=== PATIENT | female | born 1960 | race Caucasian/White ===

== ENCOUNTER 2023-05-01 11:01 | Emergency (ER) | payer OTHER, SELFPAY ==
[2023-05-01 11:02] VITALS: BP 158/89
--- NOTE | 2023-05-01 12:00 | ED.MUSCINJ ---
HPI-Injury
<GAIL Ordaz - Last Filed: 05/01/23 15:08>
General
Chief Complaint: Musculo-Skeletal Complaint
Source: patient
Exam Limitations: none
Time Seen by Provider: 05/01/23 11:42
Travel History
Have you had any contact with someone who has COVID-19?: No
Do you have any symptoms of coronavirus? Fever > 100 degrees, chills, cough, shortness of breath, sore throat, loss of taste or smell, muscle aches, or headache?: No
History of Present Illness-Injury
Is this injury a work related problem?: No
Is pt an associate of [facility]?: No
Initial Injury comments:
This is a 62 y/o female with a PMH of alcohol abuse and bipolar disorder who presents to the ED c/o left shoulder pain s/p fall 1 day ago after falling at the police station. She reports she landed on her left arm. Patient denies known cause of fall
and knowledge of surface she landed on. The pain is sharp, constant, and radiates down her arm, stopping at her wrist. Her pain is aggravated by movement and alleviated with rest. She denies weakness, numbness, paresthesias, swelling, ecchymosis,
open wounds, and any other injuries from the fall.
Past History
<GAIL Ordaz - Last Filed: 05/01/23 15:08>
Past History
ED Past Medical History: Hypercholesterolemia, Psychiatric (Bipolar disorder) and Other (Hepatitis C)
ED Past Surgical History: , Gynecological (Removal of an ovarian cyst.) and Other (lumpectomy)
Social History
Tobacco: Smoker
Alcohol: Chronic alcoholic
Drug: Marijuana
Personal:
Living: alone
Employment: Disabled
Family History
Family History: CAD
Review of Systems
<GAIL Ordaz - Last Filed: 05/01/23 15:08>
Review of Systems
Constitutional: Reports no symptoms
Musculoskeletal: Reports joint pain (Left elbow); Denies joint swelling or edema
Neurological: Denies weakness or numbness
Phy Exam
<GAIL Ordaz - Last Filed: 05/01/23 15:08>
General Physical Exam
General Presentation: well appearing and no apparent distress
General age: appears stated age
General Skin: warm
General Habitus: normal
General Mental: alert and other (Slow speech)
General Hydration: dry mucous membranes
Neurological Exam
Neurological Exam: alert and other (Slow speech)
Musculoskeletal Exam
Musculoskeletal Exam: full ROM (L shoulder, L wrist) and no edema
Skin Exam
Skin Exam: normal color, no rash and no petechia
Comment
comment:
L elbow pain with shoulder movement
L elbow full passive ROM
L medial elbow pain with supination
Pt denies ability to actively flex elbow due to pain
LUE nontender to palpation, LUE cap refill < 1s
Injury Course
<GAIL Ordaz - Last Filed: 05/01/23 15:08>
Orders/Labs/Results
Orders:
Orders
05/01/23 11:59
Acetaminophen [Tylenol] 650 mg PO NOW STA
CR Elbow - Left Min 3 Views Urgent
Comment:
Reason For Exam: trauma
05/01/23 12:00
Ice Pack-Treatment DIRECTED
Location: left elbow
05/01/23 13:41
CR Shoulder, Trauma - Left Urgent
Reason For Exam: trauma
<Jordon Rosas MD - Last Filed: 05/01/23 15:31>
Orders/Labs/Results
Orders:
Orders
05/01/23 11:59
Acetaminophen [Tylenol] 650 mg PO NOW STA
CR Elbow - Left Min 3 Views Urgent
Comment:
Reason For Exam: trauma
05/01/23 12:00
Ice Pack-Treatment DIRECTED
Location: left elbow
05/01/23 13:41
CR Shoulder, Trauma - Left Urgent
Reason For Exam: trauma
<GAIL Ordaz - Last Filed: 05/01/23 15:08>
MDM/Problems Addressed
MDM/Problems Addressed:
Patient with a PMH of alcohol abuse and bipolar disorder presents to the ED c/o left shoulder pain s/p fall 1 day ago after falling at the police station. Physical exam shows elbow pain with movement of LUE. X-rays reveal left proximal humerus
fracture.
<GAIL Ordaz - Last Filed: 05/01/23 15:08>
*Critical Care Note
Total Time (30-74mins, 75-104mins- exclusive of procedures): Not Applicable
ED Attending Note
<GAIL Ordaz - Last Filed: 05/01/23 15:08>
-
Portions of this chart may have been created with voice recognition software.� Occasional wrong word or��sound alike� substitutions may have occurred due to the inherent limitations of voice recognition software.
<Jordon Rosas MD - Last Filed: 05/01/23 15:31>
ED Attending Note
Patient seen and examined by attending physician: Yes
ED Attending Note:
Patient presents ED secondary to persistent left elbow pain after trip and fall yesterday. Patient denies any other injuries from the fall. Denies head injury. Denies loss of sensation or weakness.
Physical Exam
General: no apparent distress, not acutely ill. afebrile.
Head: nc/at. eomi
Neck: supple. normal range of motion.
Neuro: alert and oriented. no focal neurological deficits
Skin: no rash
Psychiatric: well kept. interactive and cooperative
Extremities: mild left olecranon/shoulder tenderness without ecchymosis/swelling/erythema. no obvious deformity.
History, exam, and x-ray consistent with proximal humerus fracture. Patient otherwise remains hemodynamically and neurologically intact. Patient will be placed on arm sling with recommendation to follow-up with orthopedic surgery for reevaluation.
Discharge Plan
Departure
Patient Disposition: Home (Routine Discharge)
Date of Disposition: 05/01/23
Time of Disposition: 14:58
Patient with high blood pressure during this ER visit?: Yes
Discharge Problem:
Fracture, humerus
Instructions: How to Use a Shoulder Sling, Upper Arm Fracture ED
Prescriptions:
No Action
propranolol 20 MG tablet
20 mg PO TID
Patient Comments:
fluticasone propionate 50 mcg/actuation [place],Suspension
2 spray INTRANASAL DAILYPRN PRN (Reason: allergies)
cyclosporine [Restasis] 0.05 % [place]
1 drp BOTH EYES BID
olanzapine 20 mg Tablet
20 mg PO HS
fenofibrate nanocrystallized 145 mg Tablet
145 mg PO DAILY
cyanocobalamin (vitamin B-12) 1,000 mcg Tablet
1,000 mcg PO DAILY
nicotine 14 mg/24 hr Patch 24 Hour
14 mg transdermal DAILY Qty: 30 0RF
clonazepam 0.5 mg Tablet
0.5 mg PO BID Qty: 60 0RF
aspirin [Children's Aspirin] 81 mg Tablet,Chewable
81 mg PO DAILY Qty: 30 0RF
cefdinir 300 mg Capsule
300 mg PO Q12 Qty: 2 0RF
Referrals:
Stoney Vega MD [Active] -
UNKNOWN - PT DOES,NOT KNOW [Family Provider] -
Activity Restrictions/Additional Instructions:
As discussed, please follow up with referred orthopaedic surgeon for further evaluation and treatment.
Interventions
Interventions:
*Risk Screen - Suicide Last Done: 05/01/23 12:51
*General Assessment Last Done: 05/01/23 12:51
*Neglect/Abuse Screening Last Done: 05/01/23 12:51
*ED COVID-19 Vaccine History Last Done: 05/01/23 12:51
*Nursing Disposition Last Done: 05/01/23 15:12
ED-Musculoskeletal Assessment Last Done: 05/01/23 12:50
Discharge Date and Time
Discharge Date/Time: 05/01/23 15:13
[2023-05-01] MEDS: TYLENOL 650 MG PO (12:35)
== END 2023-05-01 15:13 | disposition home or self-care (01) ==
LOC: EMR 11:01
PROVIDERS: EMERGENCY PHYSICIAN Emergency Medicine
DX: S42.202A Unspecified fracture of upper end of left humerus, initial encounter for closed fracture (principal); W01.0XXA Fall on same level from slipping, tripping and stumbling without subsequent striking against object, initial encounter; F31.9 Bipolar disorder, unspecified; E78.00 Pure hypercholesterolemia, unspecified; F17.200 Nicotine dependence, unspecified, uncomplicated; Z82.49 Family history of ischemic heart disease and other diseases of the circulatory system
CPT/HCPCS: 99283; 73030; 73080

== ENCOUNTER 2023-05-12 18:57 | Inpatient (IN) | payer OTHER, SELFPAY ==
[2023-05-12] VITALS (13 sets, daily range): BP systolic 127–177; BP diastolic 64–106; BMI 32.8; BMI 33.2
--- NOTE | 2023-05-12 10:05 | ED.GENMED ---
History of Present Illness
General
Chief Complaint: Breathing Problem
Source: patient
Time Seen by Provider: 05/12/23 09:59
History of Present Illness
History of Present Illness:
62-year-old female with past medical history of bipolar disorder, alcohol use, anxiety, hepatitis C presenting to the emergency department via EMS from home due to shortness of breath that woke her up from sleep earlier this morning, did not take
any medications prior to arrival. Patient notes that her boyfriend contacted EMS due to her symptoms. History is somewhat limited due to patient mostly answering only yes and no questions and seemingly somewhat agitated with staff's questioning of
what brought patient to the emergency department. Patient is denying any chest pain, fevers or recent illnesses, abdominal pain or any other concerns. Social history was significant for smoking 1 pack/day. Patient also arrived with a sling to the
left upper extremity for which she states she has been wearing after a recent visit to this emergency department but is unable to tell us what exact injury she had.
Past History
Past History
ED Past Medical History: Hypercholesterolemia, Psychiatric (Bipolar disorder) and Other (Hepatitis C)
ED Past Surgical History: , Gynecological (Removal of an ovarian cyst.) and Other (lumpectomy)
Social History
Tobacco: Smoker
Alcohol: Chronic alcoholic
Drug: Marijuana
Personal:
Living: with family
Employment: Disabled
Family History
Family History: CAD
Review of Systems
Review of Systems
All Other Systems: ROS reviewed and negative except as documented in HPI and ROS
Phy Exam
Physical Exam
Physical Exam:
GENERAL: Alert , disheveled, appears older than stated age
Head: Normocephalic atraumatic
EYE: conjunctiva clear
NECK: Supple
ENT: o/p clr, mmm.
CARDIAC: Regular rate and rhythm
LUNGS: Somewhat rhonchorous lung sounds anterior and posterior lung william, tachypneic, no wheezing or rails
NEUROLOGICAL: Alert and oriented
SKIN: Warm and dry, skin intact.
MUSCULOSKELETAL: well perfused. No edema
PSYCH: Normal and appropriate interaction.
Scores
Heart Failure Risk
Heart Failure Risk Score: Not Applicable
Heart Score for Chest Pain Patients
STEMI patient?: Not applicable
Withdrawal Assessment of Alcohol
Withdrawal Assessment Completed?: Not applicable
Course
Orders/Labs/Results
Orders:
Orders
05/12/23 09:59
Electrocardiogram (*1) Urgent
Reason for Study: Shortness of Breath
CR Chest - 2 Views Urgent
Comment:
Reason For Exam: shortness of breath
05/12/23 10:00
EKG- Treatment ONCE
05/12/23 10:03
Albuterol Nebs [Ventolin Nebules] 2.5 mg INH R NOW STA
MethylPREDNISolone PF [Solu-Medrol Pf] 60 mg IV NOW STA
05/12/23 10:09
COVID-19 Antigen Urgent
Source: Nasal Swab
Complete Blood Count/With Diff Urgent
05/12/23 10:47
NT-proBNP Urgent
Troponin I Urgent
05/12/23 11:50
Alcohol Urgent
Comprehensive Metabolic Panel Urgent
Magnesium Urgent
Comment: ADD ON
05/12/23 12:45
Doxycycline [Vibramycin] 100 mg PO NOW STA
Potassium Chloride [KCl] 40 meq PO NOW STA
05/12/23 12:57
Ipratropium/Albuterol Sulfate [Duoneb] 3 ml INH R NOW ONE
Prednisone [Deltasone] 50 mg PO NOW STA
05/12/23 13:44
Add On- LAB Urgent
Tests Added?: magnesium
05/12/23 14:29
CT Chest Pe Study Urgent
Comment:
Reason For Exam: SOB, mild hypoxia
05/12/23 14:35
Potassium Chloride [KCl] 40 meq 0.9% Sodium Chloride 250 ml [Nss] 250 ml IV NOW
05/12/23 18:32
Admit/Transfer Patient As Directed
Co-Sign Provider:
Level of Care: Inpatient admission
Assign to:: Telemetry
Physician / Group: Hospitalist
Diagnosis: pneumonia
Reason for Telemetry: Pulmonary Edema
Date to Stop Telemetry: 05/15/23
Time to Stop Telemetry: 11:00
Reason for Hospitalization: pneumonia, tachypnea
Expected length of stay greater than two midnights?: Yes
ELOS- Estimated Length of Stay in days: 5
I certify the patient meets the requirements for IP care: Yes
05/12/23 18:36
Code Status As Directed
Resuscitation Status: Full Code
05/12/23 18:47
Add On- LAB Urgent
Tests Added?: lactic acid
05/12/23 19:35
Acetaminophen [Tylenol] 650 mg PO Q4HPRN PRN
Ipratropium/Albuterol Sulfate [Duoneb] 3 ml INH R Q4HPRN PRN
Ondansetron Injectable [Zofran] 4 mg IV Q6HPRN PRN
05/12/23 19:35
PULMONARY CONSULT Routine
Consulting Provider: Aries Gillette
Was physician already notified: Yes
Activity As Directed
Activity Level: Out of Bed-Early Mobility
Intake/ Output As Directed
Frequency: Per unit guidelines
Vital Signs As Directed
Frequency: Per unit guidelines
Weight As Directed
Frequency: Once
Comment: on admission
O2 Therapy [RESP] Routine
Titrate/Wean O2 to maintain O2 sat greater than (%): 92
Special Instructions: Wean as tolerated
Rx Incentive Spirometry [RESP] Routine
Frequency: q1h while awake
Smoking Cessation Counseling [RESP] Routine
DX Deep Vein Thrombosis Video Routine
05/12/23 20:00
Guaifenesin [Mucinex] 600 mg PO Q12
Heparin 5,000 units SC Q12
05/12/23 20:10
Lactic Acid Urgent
05/12/23 22:00
Doxycycline [Vibramycin] 100 mg PO BID
05/13/23 Breakfast
Regular
At Your Request: Limited Participation
05/13/23 07:03
Complete Blood Count/With Diff IN AM
Comprehensive Metabolic Panel IN AM
05/13/23 08:00
Escitalopram Oxalate [Lexapro] 10 mg PO DAILY
Nicotine [Nicoderm Transdermal] 14 mg TRANSDERM DAILY
Prednisone [Deltasone] 40 mg PO DAILY
05/15/23 11:00
DC Protocol for Telemetry ONCE
Abnormal Lab Results
05/12/23 05/12/23
10:09 11:50
WBC 4.6 L 10^3/uL
(4.8-10.8)
RBC 3.93 L 10^6/uL
(4.20-5.40)
Hct 36.6 L %
(37.0-47.0)
MCH 33.1 H pg
(27.0-31.0)
RDW 14.6 H %
(11.5-14.5)
Abs Immat Gran (auto) 0.1 H 10^3/uL
(0-0.05)
Immature Gran % 1.3 H %
(0-0.5)
Potassium 2.7 L* mmol/L
(3.5-5.1)
BUN 5 L mg/dl
(7-17)
Glucose 137 H mg/dl
(70-99)
Total Bilirubin 1.8 H mg/dl
(0.2-1.3)
05/12/23 10:09
05/12/23 11:50
Vital Signs
Initial and Last Documented VS:
Initial Vital Signs
Pulse Resp Pulse Ox
94 25 94
05/12/23 09:59 05/12/23 09:59 05/12/23 09:59
Last Documented Vital Signs
Temp Pulse Resp BP Pulse Ox
99.2 F 53 14 145/76 97
05/14/23 03:25 05/14/23 03:25 05/14/23 03:25 05/14/23 03:25 05/14/23 03:25
MDM/Problems Addressed
Differential Diagnosis Includes:
Asthma/COPD exacerbation, anxiety, minimal concern for infectious etiology given lack of fever and URI-like symptoms, alcohol use
MDM/Problems Addressed:
62-year-old female presenting the emergency department for evaluation of reported shortness of breath that started while sleeping and it woke her up. She arrives to the emergency department very tachypneic and seemingly very anxious. She will
answer questions when prompted but needs repetitive questioning at times to obtain an answer from the patient. She was recently here for a left humerus fracture. She also had a noted visit for earlier this year with suspected benzodiazepine
overuse. Patient has a noted history for alcohol use. Will check labs, COVID, chest x-ray. Will treat with a albuterol neb and Solu-Medrol. Reassessment following. Patient does admit to not following with a primary care physician regularly and
does not remember last time she saw her primary care doctor.
Chronic conditions affecting care: COPD and Asthma
Acute Exacerbation and/or Progression of Chronic Illness: COPD and Asthma
*Pulse Oximetry
Patient hypoxic: no
*EKG
Interpreted by ED Provider?: Yes
Comparison EKG: no changes
Heart Rate: 97
Rate: normal
Rhythm: sinus
Interval: long QT
Ischemia: no ischemia
*Registered Nurse Float Pool Interpretation
Rate: normal
Rhythm: sinus
*Critical Care Note
Total Time (30-74mins, 75-104mins- exclusive of procedures): Not Applicable
Data Reviewed
Review of Other/Old Records Reveals: Labs and Records
Source: patient, records and ambulance crew
Patient Management
Discussion with other providers: Hospitalist
Escalation/DeEscalation of care consider admission/obs:
05/12/2023 1213 PM: Patient sleeping and resting comfortably and in no acute distress. Labs reassuring and overall unchanged from previous. Chest x-ray with questionable pneumonia. Given patient's history will likely start her on doxycycline 100
mg twice daily x 10 days.
05/12/2023 1344 PM: Patient's potassium 2.7. Will orally replete. I suspect this is likely related to her alcohol history. On second reevaluation patient has noted recurring wheezing. Additional DuoNeb ordered. Reassessment following
05/12/2023 1416 PM: Following second nebulizer treatment pulse ox now between 91 and 94% on room air. She remains tachypneic and overall seems to be having a hard time speaking full sentences now. There is slight accessory muscle use. At this
point I do not feel patient will be safe to be discharged home and will need admission. I notified hospitalist team who accepts for continued evaluation and treatment.
ED Attending Note
-
Portions of this chart may have been created with voice recognition software.� Occasional wrong word or��sound alike� substitutions may have occurred due to the inherent limitations of voice recognition software.
Discharge Plan
Departure
Patient Disposition: Admit
Date of Disposition: 05/12/23
Time of Disposition: 14:15
Presentation/result/management discussed w/ accepting MD/DO: Hospitalist
Discharge Problem:
Asthma, Hypokalemia, Pneumonia
Interventions
Interventions:
*Risk Screen - Suicide Last Done: 05/12/23 10:01
*General Assessment Last Done: 05/12/23 10:01
*Neglect/Abuse Screening Last Done: 05/12/23 10:01
ED- Fall Risk Assessment Last Done: 05/12/23 10:01
*ED COVID-19 Vaccine History Last Done: 05/12/23 10:01
*Nursing Disposition Last Done: 05/12/23 19:33
ED- Cardiac Assessment Last Done: 05/12/23 10:01
ED- Pulmonary Assessment Last Done: 05/12/23 10:01
Discharge Date and Time
Discharge Date/Time: 05/12/23 19:33
--- NOTE | 2023-05-12 10:20 | EDRN ---
the pt states that she doesn't take her prescribed medications anymore, and the pt is refusing to change into a hospital gown, the pt is in and out of sleep
[2023-05-12] MEDS: SOLU-MEDROL PF 60 MG IV (10:22)
[2023-05-12] MEDS: VENTOLIN NEBULES 2.5 MG INH (10:22)
[2023-05-12 10:24] LABS: % Basophils 0.2 % (0-2); % Immature Granulocytes 1.3 % (0-0.5); % Monocytes 8.8 % (1.7-9.3); % Neutrophils 62.7 % (42.2-75.2); Absolute Immature Granulocytes 0.1 10^3/uL (0-0.05); Absolute Lymphocytes 1.2 10^3/uL (1.2-3.4); Absolute Monocytes 0.4 10^3/uL (0.1-0.6); Absolute Neutrophils 2.9 10^3/uL (1.4-6.5); Hematocrit 36.6 % (37.0-47.0); Mean Corp Hgb Conc. 35.5 g/dL (33.0-37.0); Mean Corpuscular Hgb 33.1 pg (27.0-31.0); Mean Corpuscular Volume 93.1 fL (81.0-99.0); Nucleated Red Blood Cells % 0 %; Red Blood Cell Count 3.93 10^6/uL (4.20-5.40); Red Cell Dist. Width 14.6 % (11.5-14.5); White Blood Cell Count 4.6 10^3/uL (4.8-10.8)
--- NOTE | 2023-05-12 10:29 | EDRN ---
the pt is screaming at this nurse stating, 'I want pain medication and i want oxygen, i can't breathe', this RN assured the patient that her 02 saturation was good at 94-96%, and this RN notified the provider that the pt was in pain
[2023-05-12 10:35] LABS: COVID-19 Antigen Negative (Negative)
[2023-05-12 11:22] LABS: NT-proBNP 92.8 pg/ml; Troponin I < 0.012 ng/ml
[2023-05-12 12:36] LABS: ALT (SGPT) 19 U/L (0-35); AST (SGOT) 22 U/L (14-36); Albumin 3.9 g/dl (3.5-5.0); Alkaline Phosphatase 113 U/L (38-126); Blood Urea Nitrogen 5 mg/dl (7-17); Calcium 9.4 mg/dl (8.4-10.2); Carbon Dioxide 30 mmol/L (22-30); Chloride 105 mmol/L (98-107); Estimated Creatinine Clearance 78 ml/min; Glucose 137 mg/dl (70-99); Sodium 137 mmol/L (135-145); Total Bilirubin 1.8 mg/dl (0.2-1.3); Total Protein 6.7 g/dl (6.3-8.2); eGFR > 60.00
[2023-05-12 12:37] LABS: Alcohol None Detected
[2023-05-12 12:45] LABS: Potassium 2.7 mmol/L (3.5-5.1)
[2023-05-12] MEDS: KCL 40 MEQ PO (13:12)
[2023-05-12] MEDS: DELTASONE 50 MG PO (13:12)
[2023-05-12] MEDS: VIBRAMYCIN 100 MG PO ×2 (13:12→20:32)
[2023-05-12] MEDS: DUONEB 3 ML INH (13:14)
--- NOTE | 2023-05-12 14:05 | EDRN ---
the pt desturates to 91-92% while sleeping, and HR from 90-110's, provider notified
[2023-05-12 14:09] LABS: Magnesium 1.9 mg/dl (1.6-2.3)
--- NOTE | 2023-05-12 14:19 | EDRN ---
the pt was placed on 2L NC and Sp02 came up to 96%
[2023-05-12] MEDS: KCL 270 MEQ IV (14:53)
--- NOTE | 2023-05-12 14:54 | EDRN ---
the pt pressed the call senior and this RN entered the pts room, the pt stated that she needed to have a bowel movement, the pt was placed on bed gar and had a large bowel movement, the pt was changed into gown, linens changed, and the pt was
repositioned in stretcher for comfort, the pts left arm sling was repositioned as well
--- NOTE | 2023-05-12 18:48 | HPS.HSE ---
Addendum entered and electronically signed by Bo Barron MD 05/12/23 19:51:
I saw and examined the patient.
The STRAIGHT SLICING MACHINE OPERATOR or PA's note was reviewed and I agree with the note.
Comment:
Patient is 62 years old female with past medical history of bipolar disorder, hepatitis C, anxiety, hyperlipidemia, DVT, CVA, suspicion for frontotemporal dementia, alcohol use disorder, came into the hospital with shortness of breath. She is a
poor historian. She does tell me that she is short of breath for about a week and cough with green sputum production. Denies chest pain. She denies nausea vomiting or diarrhea. She denies alcohol intake or alcohol withdrawal issues. In the ED,
potassium 2.7, chest x-ray with mild right basilar airspace disease, follow-up CT scan of the chest negative for PE and no other significant abnormalities.
Physical exam:
General: Acutely ill
HEENT: Normocephalic, Atraumatic and Moist Mucous Membranes
Respiratory: Few scattered Rhonchi; Negative Rales or Wheezes
Cardiac: Regular Rhythm and S1/S2
GI: Soft, Nontender and Nondistended
Musculoskeletal: Left upper extremity sling. No Clubbing, No Cyanosis and No Edema
Neuro: Awake, Alert and Oriented
Psych: Flat affect, cognitive deficits apparent.
A/P:
Shortness of breath/hypokalemia/smoker/alcohol use disorder/abnormal chest x-ray--> continue oxygen supplementation as needed, bronchodilators, not sure that she really needs broad-spectrum antibiotics and systemic steroids but in the ER already
given Solu-Medrol 60 mg x 1 and doxycycline 100 mg x 1 and I believe prednisone 50 mg p.o. x 1-Will reevaluate over the next 24 hrs. Probably cont oral steroids and oral antibiotics until further eval.Pulmonary consult. May need psychiatry eval.
Will give further recommendations based on her clinical course.
Original Note:
Family Physician
-
Family Physician: Garry Jones
Chief Complaint
-
respiratory distress
History of Present Illness
62-year-old female with past medical history of bipolar disorder, alcohol use, anxiety, hepatitis C presenting to the ED via EMS from home due to respiratory distress.� Patient stated symptoms started last night. Patient is a poor historian and
answers were limited to yes or no due to tachypnea and agitation. Patient denies fevers or recent illnesses, abdominal pain, nausea or vomiting or any other concerns.� Social history was significant for smoking 1 pack/day.� Patient stated she has
not had an alcoholic beverage in over a year. Patient also arrived with a sling to the left upper extremity for which she states she has been wearing after a recent visit to this emergency department but is unable to tell us what exact injury she
had.
Medical History
Past Medical History
Past Medical History: Reports Hypercholesterolemia and Other (Bipolar disorder, hepatitis C, depression)
Past Surgical History: Reports Gynocological
Social History
Tobacco: Smoker
Alcohol: Daily
Drug: Marijuana
Family History
Family History: Not pertinent
Allergies / Home Medications
Allergies reflects when Allergies were last updated in [facility].
Home Medications with original date entered in [facility]
Allergy/Medication List:
Allergies
Allergy/AdvReac Type Severity Reaction Status Date / Time
aripiprazole [From Abilify] Allergy confusion Verified 04/13/22 11:56
cetirizine [From Zyrtec] Allergy confusion Verified 04/13/22 11:56
trazodone Allergy 'I feel Verified 04/13/22 11:56
really
weird'
muscle relaxers Allergy dizziness Uncoded 04/13/22 11:56
Home Medications
clonazepam 2 mg tablet 2 mg PO DAILY 05/12/23
clonazepam 2 mg tablet 4 mg PO HS 05/12/23
escitalopram oxalate 10 mg tablet 10 mg PO DAILY 05/12/23
olanzapine 20 mg tablet 20 mg PO HS 05/12/23
olanzapine 5 mg tablet 5 mg PO HS 05/12/23
propranolol 20 mg tablet 20 mg PO TID 05/12/23
Review of Systems
-
History Source: Patient
A 12 point ROS was completed and negative except as noted: Yes
Constitutional: Reports No Symptoms
EENT: Reports No Symptoms
Respiratory: Reports Trouble Breathing
Cardiac: Reports No Symptoms
Abdomen/GI: Reports No Symptoms
: Reports No Symptoms
Musculoskeletal: Reports No Symptoms
Skin: Reports No Symptoms
Neurological: Reports No Symptoms
Endocrine: Reports No Symptoms
Hematologic/Lymphatic: Reports No Symptoms
Physical Exam
Vital Signs
Vital Signs
Temp Pulse Resp BP Pulse Ox
97.9 F 111 16 134/84 98
05/12/23 10:01 05/12/23 18:45 05/12/23 10:01 05/12/23 18:00 05/12/23 18:45
Physical Exam
General: Respiratory Distress
HEENT: NormoCephalic and Atraumatic
Respiratory: Wheezes and Rhonchi
Cardiac: Tachycardia
Breast: Deferred by me
GI: Soft and Non Tender
Rectal: Deferred by Provider
Genito-urinary: Deferred by me
Musculoskeletal: No Cyanosis and No Edema
Skin: Warm and Dry
Neuro: Awake and Alert
Psych: Agitated and Anxious
Laboratory Results
-
05/12/23 10:09
05/12/23 11:50
Laboratory Results
Total Bilirubin 1.8 mg/dl (0.2-1.3) H 05/12/23 11:50
AST 22 U/L (14-36) 05/12/23 11:50
ALT 19 U/L (0-35) 05/12/23 11:50
Alkaline Phosphatase 113 U/L (38-126) 05/12/23 11:50
Troponin I < 0.012 ng/ml 05/12/23 10:47
Impression/Plan
-
IMPRESSION/PLAN:
Admit to Telemetry under Hospitalist service
Chest x-ray IMPRESSION:
Mild right basilar airspace disease may reflect atelectasis and/or pneumonia.
#Pneumonia
-Steroids
-PRN Nebs
-Pulmonology consult
-Antibiotics
# Alcohol use disorder
-Patient stated last drink was over a year ago and alcohol level negative
-No signs of withdrawal currently
-MSAS
-Psychiatry consult
#History of bipolar disorder/anxiety/depression
-Continue Escitalopram Oxalate
-Psychiatry consult
#History of hepatitis C status posttreatment
#Hypokalemia
-Replete K and recheck in am
#Tobacco use disorder
-Smokes 1 pack/day
-Nicotine patch
-Smoking cessation education
Full code
DVT prophylaxis: SQH
[2023-05-12 19:52] LABS: Lactic Acid 2.4 mmol/L (0.7-2.0)
[2023-05-12] MEDS: MUCINEX 600 MG PO (20:28)
[2023-05-12] MEDS: TYLENOL 650 MG PO (20:28)
[2023-05-12] MEDS: HEPARIN 5000 UNITS SC (20:29)
[2023-05-12 20:48] LABS: Lactic Acid 4.5 mmol/L (0.7-2.0)
[2023-05-12] MEDS: LR 500 IV (21:33)
[2023-05-12] MEDS: ZYPREXA 5 MG PO (21:35)
[2023-05-12] MEDS: ZYPREXA 20 MG PO (21:35)
[2023-05-12] MEDS: INDERAL 20 MG PO (21:36)
[2023-05-13] VITALS (8 sets, daily range): BP systolic 138–180; BP diastolic 74–93; PULSE 71–73; O2SAT 97
--- NOTE | 2023-05-13 01:03 | W.PN.UPDATE ---
Update Note
Progress Note Update
Reviewed pt home medications with pharmacy as pt is poor historian.
According to doc first pt gets following scripts filled..
Clonazepam 2 mg tid #180 tabs filled 04/17, 05/11
From last d/c in mar also filled 0.5 mg tabs
Zyprexa 20mg tabs +5mg tabs= 25mg
propanolol 20mg tid
lexapro 10mg daily
RN states pt visibly anxious. For now will order 0.5mg clonazepam tid prn to prevent withdrawal
Will have psych review in am
Last d/c clonazepam was tapered to 0.5mg tid
[2023-05-13 07:19] LABS: % Basophils 0.2 % (0-2); % Immature Granulocytes 1.3 % (0-0.5); % Lymphocytes 18.4 % (20.5-51.1); % Monocytes 10.3 % (1.7-9.3); % Neutrophils 69.8 % (42.2-75.2); Absolute Immature Granulocytes 0.1 10^3/uL (0-0.05); Absolute Lymphocytes 1.1 10^3/uL (1.2-3.4); Absolute Monocytes 0.6 10^3/uL (0.1-0.6); Absolute Neutrophils 4.1 10^3/uL (1.4-6.5); Hematocrit 32.4 % (37.0-47.0); Hemoglobin 11.3 g/dL (12.0-16.0); Mean Corp Hgb Conc. 34.9 g/dL (33.0-37.0); Mean Corpuscular Hgb 32.4 pg (27.0-31.0); Mean Corpuscular Volume 92.8 fL (81.0-99.0); Mean Platelet Volume 9.2 fL (7.4-10.4); Nucleated Red Blood Cells % 0 %; Platelet Count 228 10^3/uL (130-400); Red Blood Cell Count 3.49 10^6/uL (4.20-5.40); Red Cell Dist. Width 14.6 % (11.5-14.5); White Blood Cell Count 5.9 10^3/uL (4.8-10.8)
[2023-05-13 07:54] LABS: Procalcitonin < 0.05 ng/ml (0.0-0.25)
[2023-05-13 08:03] LABS: C-Reactive Protein < 5.00 mg/L (0.0-10.00)
[2023-05-13 08:08] LABS: ALT (SGPT) 16 U/L (0-35); AST (SGOT) 17 U/L (14-36); Albumin 3.4 g/dl (3.5-5.0); Alkaline Phosphatase 100 U/L (38-126); Blood Urea Nitrogen 10 mg/dl (7-17); Calcium 9.8 mg/dl (8.4-10.2); Carbon Dioxide 25 mmol/L (22-30); Chloride 111 mmol/L (98-107); Estimated Creatinine Clearance 79 ml/min; Glucose 121 mg/dl (70-99); Potassium 3.7 mmol/L (3.5-5.1); Sodium 140 mmol/L (135-145); Total Bilirubin 1.4 mg/dl (0.2-1.3); Total Protein 5.9 g/dl (6.3-8.2); eGFR > 60.00
[2023-05-13] MEDS: NICODERM TRANSDERMAL TRANSDERM (08:26)
[2023-05-13] MEDS: HEPARIN 5000 UNITS SC ×2 (08:27→21:17)
[2023-05-13] MEDS: INDERAL 20 MG PO ×3 (08:27→21:20)
[2023-05-13] MEDS: VIBRAMYCIN 100 MG PO ×2 (08:27→21:18)
[2023-05-13] MEDS: LEXAPRO 10 MG PO (08:28)
[2023-05-13] MEDS: MUCINEX 600 MG PO ×2 (08:28→21:18)
[2023-05-13] MEDS: THIAMINE INJECTION 200 MG IV ×2 (08:28→21:17)
[2023-05-13] MEDS: DESENEX/MITRAZOL/ZEASORB 1 APPLIC TOPICAL ×2 (08:28→21:17)
[2023-05-13] MEDS: DELTASONE 40 MG PO (08:28)
[2023-05-13 08:34] LABS: TSH Reflex To Free T4 0.26 uIU/ml (0.47-4.68)
--- NOTE | 2023-05-13 08:44 | W.PN.HOSP.TC ---
Today's Communication/Plan
-
Oral steroids and antibiotics. Psychiatry consult. Pulmonary consult. Discharge planning in progress
Assessment / Plan
Assessment / Plan
Physical exam:
General: Acutely ill
HEENT: Normocephalic, Atraumatic and Moist Mucous Membranes
Respiratory: Few scattered Rhonchi; Negative Crackles or Rales or Wheezes
Cardiac: Regular Rhythm and S1/S2
GI: Soft, Nontender and Nondistended
Musculoskeletal: Left upper extremity sling.� No Clubbing, No Cyanosis and No Edema
Neuro: Awake, Alert and Oriented
Psych: Anxious, lacking insight judgment, no psychosis or hallucinations.
A/P:
#SOB
-Seen and reviewed CT scan of the chest and no evidence of PE nor evidence of pneumonia. Procalcitonin < 0.05
-She is a smoker and currently on oral steroids and antibiotics.
-Awaiting pulmonary consultation for further evaluation and advise
-PT OT eval
#Depression, unspecified/ Hx Bipolar/ Benzodiazepine dependence, unspecified:
-She is on quite high doses of benzodiazepines as outpatient and multiple other psychoactive medicines. Discussed with psychiatrist today on 05/13 and psychiatry will continue all his medications.
-TSH abnormal, B12 more than 1000
-Current psychiatric medications: Klonopin 1 mg p.o. 3 times daily, Zyprexa 10 mg nightly, propranolol 20 mg p.o. 3 times daily.
-Patient agreeable to inpatient rehab for which psychiatry will consult [facility].
# Thyroid function test abnormalities:
-Low TSH but normal free T4
-Will repeat TSH in the morning and will obtain T3 as well
#Hypokalemia:
-Improved and today K3.7
-Continue to monitor electrolytes
#Anemia:
-No signs of bleeding and hemoglobin stable 11.3 today, from 13 yesterday
-Continue to monitor
#Left proximal humerus fracture:
-Nonsurgical approach, continue sling
#Increased lactate:
-Back to normal
#Hepatitis C:
-Per report she had treatment in the past.
#Nicotine use disorder:
-Continue nicotine patch
#Alcohol use disorder:
-No alcohol withdrawal issues at this point but monitor
DVT prophylaxis:
Heparin subcu
CODE STATUS:
Full code
Anticipated Discharge: > 48 hours
Subjective/Interval History
-
Date of Service: May 13, 2023
Patient feels her shortness of breath is improved. She feels anxious overall.
Objective Data
-
Labs:
Laboratory Results
05/13/23
07:03
WBC 5.9
Hgb 11.3 L
Hct 32.4 L
Plt Count 228
Sodium 140
Potassium 3.7 D
Chloride 111 H
Carbon Dioxide 25
BUN 10
Creatinine 0.7
Glucose 121 H
Calcium 9.8
Total Bilirubin 1.4 H
AST 17
ALT 16
Alkaline Phosphatase 100
Vital Signs:
Vital Signs
Temp Pulse Resp BP Pulse Ox
98.5 F 74 14 160/88 95
05/13/23 07:13 05/13/23 08:27 05/13/23 07:13 05/13/23 08:27 05/13/23 07:13
I&O
05/12/23 05/13/23 05/14/23
06:59 06:59 06:59
Intake Total 980 / 980
Output Total 1200 / 1200
Balance -220 / -220
Review of Systems
-
All other systems: Reviewed and negative
[2023-05-13 08:53] LABS: Vitamin B12 > 1000 pg/ml (239-931)
[2023-05-13 09:01] LABS: Free T4 1.78 ng/dl (0.78-2.19)
--- NOTE | 2023-05-13 11:30 | CON.MD ---
Consultation - Medical
-
patient seen chart reviewed. spoke with nursing. this patient is well known to me from prior admits to . she was last admitted for change in mental status in march of 2023. she did not deny misuse of klonopin. she has hx of bipolar disorder
with prior psych hosp the last about three years ago. she was seen by dr aminata monreal at [facility] in the past and it is he who started zyprexa current dose 25 mg lexparo 10 mg but in recent years pcp has prescribed for her including
klonopin 2 mg tid. she was told on last admit that she needed to get that dose down if not ca'ed completely and it was explained to her how she might accomplish this. she was sent home with sixty o.5 mg tabs scrip filled on 03.30 but she continue
to use the higher dose and [facility]. she ran out early and says her pcp dr alexandru ackerman 'cut me off'. she says she ran out approximately one week early. she is here this time for shortness of breath.
patient does not deny that she is depressed. sometimes she has suicidal thoughts but no intent or plan and would not act on it. sleep poor. apppetite plus/minus. energy is not great. she does not enjoy much at this point. she is anxious much of the
time. there is nothing to suggest psychosis in the past several years
past psych hx patient was hospitalized in the past for affective d.o but not for over three years. at some point was seen at [facility] but they have closed their local office and pcp was prescribing for her says her last psych admit was
for 'depression and drugs' (klonopin)
medical hx copd/asthma (smokes cigs) anemia tremor hx hep c dvt in the past cat brain in the past showed infarct and atrophy hx falls w fx pelvis , pneumonia tox + for bzp bp this am 160/88 ecg w prolonged qtc
family hx non contributory
substance abuse see above re klonopin has dui charges pending given klonopin abuse denies other drug use
social lives w bf. supportive but 'he has a short fuse' on disability dui hearing end of june.
mse alert ox3 cooperative relatively pleasant. speech and thought process nl no psychosis mood is dysphoric admits to si at times but no intent or plan affect appropriate insight judgment lacking memory seems fair
dx bzp dependence unspecified unspecified depression
plan she is agreeable to in patient rehab which she really needs. we tried to send her home last time w daniel and explained to her how to taper. this did not work very well. see pdmp for details. for now klonopin 1 mg tid as we cannot stop it
suddenly. cut back zyprexa to 20 mg daily it is not clear to me that she needs this dose much less 25 mg. continue lexapro. dc lexapro given prolonged qtc. will reasses later could use remeron.... need to watch for signs of bzp withdrawal. she
has a prn as well for klonopin which she may need in addition to standing dose. she does not appear to be in any physical distress right now from withdrawal psych will follow. [facility] consult for placement
--- NOTE | 2023-05-13 16:21 | CM ---
Patient seen bedside.
IA completed.
Patient lives with boyfriend in a 1 story home with 2-3 steps to enter.
Patient independent prior to admission without Assistive devices.
patient s/p fall and has a left UE sling, patient stated fractured.
Patient does not drive.
Patient does not work.
Patient has been in inpatient [facility] in the past, unable to remember the Facilities, just [facility].
Patient is followed by Dr Boyle for psychiatry.
PCP: Dr Jones
Pharmacy: [facility]
Plan: TBD, inpt vs outpatient psych. Patient does not want inpatient.
--- NOTE | 2023-05-13 16:40 | CON.PUL ---
Consultation
Consultation Request
Date/Time Consultation Requested: 05-13-23
Date/Time Consultation Performed: 05-13-23
Requesting Provider: Hospitalist
Performing Provider: Dr Gillette
Reason for Consultation: dyspnea
Medical History
-
Chief Complaint: dyspnea
History of Present Illness:
Mrs Jemima Coffey is a 62/W adm 05-12 with acute onset dyspnea that woke her up from asleep. At ER, poor historian, tachypneic, anxious. Started on O2, BDs, CS on adm. At time of visit, mentation has improved, conversant, cooperative with interview
and physical exam. Confirms h/o chronic smoking, states has quit etoh about 1 y ago, uses medical marijuana. Never seen by pulm, not on home O2 or BDs
Impression:
AECOPD, mild
Hypokalemia, replaced
Normal troponin and BNP
Resolved lactic acidosis
Normal fT4
COVID
Negative etoh level
Past Medical History
Past Medical History: Other (see A&P for PMH/PSH)
Social History
Tobacco: Smoker
Alcohol: Chronic Alcoholic
Drug: Marijuana
Personal:
Living: With Family
Employment: Disabled
Family History
Family History: CAD
Allergies / Home Medications
Allergies
Allergy/AdvReac Type Severity Reaction Status Date / Time
aripiprazole [From Abilify] Allergy confusion Verified 04/13/22 11:56
cetirizine [From Zyrtec] Allergy confusion Verified 04/13/22 11:56
trazodone Allergy 'I feel Verified 04/13/22 11:56
really
weird'
muscle relaxers Allergy dizziness Uncoded 04/13/22 11:56
Home Medications
Medication Instructions Recorded Confirmed Last Taken Type
clonazepam 2 mg tablet 2 mg PO DAILY Mental Health/Anxiety 05/12/23 05/12/23 Unknown History
clonazepam 2 mg tablet 4 mg PO HS Mental Health/Anxiety 05/12/23 05/12/23 Unknown History
escitalopram oxalate 10 mg tablet 10 mg PO DAILY Mental 05/12/23 05/12/23 Unknown History
Health/Anxiety
olanzapine 20 mg tablet 20 mg PO HS Mental Health/Anxiety 05/12/23 05/12/23 Unknown History
olanzapine 5 mg tablet 5 mg PO HS Mental Health/Anxiety 05/12/23 05/12/23 Unknown History
propranolol 20 mg tablet 20 mg PO TID Blood Pressure 05/12/23 05/12/23 Unknown History
Review of Systems
-
History Source: Patient
All other systems: Negative unless noted
Respiratory: Trouble Breathing
Vitals / Labs / Diagnostic Testing
Vital Signs
Temp Pulse Resp BP Pulse Ox
98.2 F 68 18 180/89 98
05/13/23 15:33 05/13/23 15:33 05/13/23 15:33 05/13/23 15:33 05/13/23 15:33
Lab Data
05/13/23 07:03
05/13/23 07:03
Diagnostic Testing:
Physical Exam
-
HEENT: Normocephalic and Moist Mucous Membranes
Cardiovascular: Regular Rhythm and Peripheral Edema (n)
Respiratory: Wheeze, Rhonchi and Accessory Resp Muscle Use (n)
GI: Soft, Non Distended and Non Tender
Neurology: Awake, Oriented and No Motor Deficits
Skin: Dry
General: Respiratory Distress (n)
Exam:
LUE in sling
Assessment
-
Assessment:
Mrs Jemima Coffey is a 62/W adm 05-12 with acute onset dyspnea that woke her up from asleep. At ER, poor historian, tachypneic, anxious. Started on O2, BDs, CS on adm. At time of visit, mentation has improved, conversant, cooperative with interview
and physical exam. Confirms h/o chronic smoking, states has quit etoh about 1 y ago, uses medical marijuana. Never seen by pulm, not on home O2 or BDs
Impression:
AECOPD, mild
Hypokalemia, replaced
Normal troponin and BNP
Resolved lactic acidosis
Normal fT4
COVID
Negative etoh level
Conditions [employer]ER:
L humeral fracture
COVID positive Apr 2022
HLD
Bipolar disorder
DVT
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
Hepatitis C
Removal of an ovarian cyst
Lumpectomy
Smoker
Chronic alcoholic
Marijuana use
Plan:
Currently on O2 2L, POC POx 95%
Evaluate O2 needs PTD
Comfortable, speaks in full sentences
Maintaining patent airway
Not on home O2 or BDs
Confirms chronic h/o tobacco dependence, expressed desire to quit smoking (started NRT as inpatient)
Continue DNs prn
Continue prednisone 40 mg qd, complete 5 d regimen
Continue doxycycline 100 mg po bid, complete 5 d regimen
Seen by Psych: bzd dependence
Plan for inpatient rehab, patient agreed
Diagnostic tests:
CXR 05-12-23, c/w Apr 2022, no gross infiltrates
Chest CTA 05-12-23: no PE, pulm infiltrates/mass/effusion
[2023-05-13] MEDS: KLONOPIN 1 MG PO ×2 (16:53→21:20)
[2023-05-13] MEDS: ZYPREXA 20 MG PO (21:28)
[2023-05-14] VITALS (7 sets, daily range): BP systolic 133–168; BP diastolic 74–106; PULSE 74; O2SAT 95; BMI 33.2
[2023-05-14] MEDS: TYLENOL 650 MG PO (06:13)
--- NOTE | 2023-05-14 07:46 | W.PN.HOSP.TC ---
Today's Communication/Plan
-
Continue oral steroids and antibiotics. Discharge planning in progress, KAYCEE consulted.
Assessment / Plan
Assessment / Plan
Physical exam:
General: Acutely ill
HEENT: Normocephalic, Atraumatic and Moist Mucous Membranes
Respiratory: Few scattered Rhonchi; Negative Crackles or Rales or Wheezes
Cardiac: Regular Rhythm and S1/S2
GI: Soft, Nontender and Nondistended
Musculoskeletal: Left upper extremity sling.� No Clubbing, No Cyanosis and No Edema
Neuro: Awake, Alert and Oriented
Psych: Anxious, lacking insight judgment, no psychosis or hallucinations.
A/P:
#SOB
-Seen and reviewed CT scan of the chest and no evidence of PE nor evidence of pneumonia. Procalcitonin < 0.05
-She is a smoker and currently on oral steroids and antibiotics.
-Appreciated pulm consult--> recommended continue current treatment.
-PT OT eval
#Depression, unspecified/ Hx Bipolar/ Benzodiazepine dependence, unspecified:
-She is on quite high doses of benzodiazepines as outpatient and multiple other psychoactive medicines. Discussed with psychiatrist today on 05/13 and psychiatry will continue all his medications.
-TSH abnormal, B12 more than 1000
-Current psychiatric medications: Klonopin 1 mg p.o. 3 times daily, Zyprexa 10 mg nightly, propranolol 20 mg p.o. 3 times daily.
-Patient agreeable to inpatient rehab for which psychiatry will consult [facility]-->waiting for their recommendations.
# Thyroid function test abnormalities:
-Low TSH but normal free T4-->Repeated TSH today and it is back normal, 0.68. Now free T3 mildly abnormal.
-Overall given normal findings on repeat, no need to treat but would follow up as outpatient ro inpatient if she stays long.
#Hypokalemia:
-Replete and trend
#Anemia:
-No signs of bleeding and hemoglobin stable 11.7 today
-Continue to monitor
#Left proximal humerus fracture:
-Nonsurgical approach, continue sling
#Increased lactate:
-Back to normal
#Hepatitis C:
-Per report she had treatment in the past.
#Nicotine use disorder:
-Continue nicotine patch
#Alcohol use disorder:
-No alcohol withdrawal issues at this point but monitor
DVT prophylaxis:
Heparin subcu
CODE STATUS:
Full code
Anticipated Discharge: 24 - 48 hours
Subjective/Interval History
-
Date of Service: May 14, 2023
Patient denies any worsening shortness of breath or cough. She does have discomfort on the left arm from her fracture. Afebrile
Objective Data
-
Labs:
Laboratory Results
05/14/23
07:25
WBC Pending
Hgb Pending
Hct Pending
Plt Count Pending
Sodium Pending
Potassium Pending
Chloride Pending
Carbon Dioxide Pending
BUN Pending
Creatinine Pending
Glucose Pending
Calcium Pending
Vital Signs:
Vital Signs
Temp Pulse Resp BP Pulse Ox
99.2 F 53 14 145/76 97
05/14/23 03:25 05/14/23 03:25 05/14/23 03:25 05/14/23 03:25 05/14/23 03:25
I&O
05/13/23 05/14/23 05/15/23
06:59 06:59 06:59
Intake Total 980 / 980 2400 / 2400
Output Total 1200 / 1200
Balance -220 / -220 2400 / 2400
Review of Systems
-
All other systems: Reviewed and negative
[2023-05-14 08:10] LABS: Hematocrit 34.5 % (37.0-47.0); Hemoglobin 11.7 g/dL (12.0-16.0); Mean Corp Hgb Conc. 33.9 g/dL (33.0-37.0); Mean Corpuscular Hgb 32.8 pg (27.0-31.0); Mean Corpuscular Volume 96.6 fL (81.0-99.0); Mean Platelet Volume 9.3 fL (7.4-10.4); Platelet Count 249 10^3/uL (130-400); Red Blood Cell Count 3.57 10^6/uL (4.20-5.40); Red Cell Dist. Width 14.7 % (11.5-14.5); White Blood Cell Count 8.4 10^3/uL (4.8-10.8)
[2023-05-14 08:41] LABS: Blood Urea Nitrogen 18 mg/dl (7-17); Calcium 9.8 mg/dl (8.4-10.2); Carbon Dioxide 26 mmol/L (22-30); Chloride 105 mmol/L (98-107); Estimated Creatinine Clearance 61 ml/min; Glucose 87 mg/dl (70-99); Potassium 3.3 mmol/L (3.5-5.1); Sodium 139 mmol/L (135-145); eGFR > 60.00
[2023-05-14] MEDS: THIAMINE INJECTION 200 MG IV ×2 (08:51→19:52)
[2023-05-14] MEDS: DELTASONE 40 MG PO (08:51)
[2023-05-14] MEDS: HEPARIN 5000 UNITS SC ×2 (08:51→19:51)
[2023-05-14] MEDS: INDERAL 20 MG PO ×3 (08:52→21:37)
[2023-05-14] MEDS: VIBRAMYCIN 100 MG PO ×2 (08:52→19:55)
[2023-05-14] MEDS: KLONOPIN 1 MG PO ×3 (08:53→21:38)
[2023-05-14] MEDS: DESENEX/MITRAZOL/ZEASORB 1 APPLIC TOPICAL ×2 (08:53→19:50)
[2023-05-14] MEDS: MUCINEX 600 MG PO ×2 (08:53→19:55)
[2023-05-14] MEDS: NICODERM TRANSDERMAL 14 MG TRANSDERM (08:54)
[2023-05-14 08:59] LABS: Free T3 2.35 pg/ml (2.77-5.27)
[2023-05-14 09:13] LABS: TSH 0.68 uIU/ml (0.47-4.68)
[2023-05-14] MEDS: KCL 40 MEQ PO ×2 (12:10→15:45)
[2023-05-14] MEDS: TORADOL 15 MG IV (12:10)
--- NOTE | 2023-05-14 12:11 | W.PN.PUL3 ---
Today's Communication / Plan
-
O2
BDs
Pred
Atb
Assessment
-
Assessment:
Mrs Jemima Coffey is a 62/W adm 05-12 with acute onset dyspnea that woke her up from asleep. At ER, poor historian, tachypneic, anxious. Started on O2, BDs, CS on adm. At time of visit, mentation has improved, conversant, cooperative with interview
and physical exam. Confirms h/o chronic smoking, states has quit etoh about 1 y ago, uses medical marijuana. Never seen by pulm, not on home O2 or BDs
Impression:
AECOPD, mild
Hypokalemia, replaced
Normal troponin and BNP
Resolved lactic acidosis
Normal fT4
COVID
Negative etoh level
Conditions [employer]BER:
L humeral fracture
COVID positive Apr 2022
HLD
Bipolar disorder
DVT
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
Hepatitis C
Removal of an ovarian cyst
Lumpectomy
Smoker
Chronic alcoholic
Marijuana use
Plan:
Currently on O2 2L, POx 96%
Evaluate O2 needs PTD
Comfortable, speaks in full sentences
Maintaining patent airway
Not on home O2 or BDs
Confirms chronic h/o tobacco dependence, expressed desire to quit smoking (started NRT as inpatient)
Continue DNs prn
Continue prednisone 40 mg qd, complete 5 d regimen
Continue doxycycline 100 mg po bid, complete 5 d regimen
Seen by Psych: bzd dependence
Plan for inpatient rehab, patient agreed
OOB to chair as tolerated
PT/OT
Disposition efforts, no objection to inpatient rehab as rec by Psych
Diagnostic tests:
CXR 05-12-23, c/w Apr 2022, no gross infiltrates
Chest CTA 05-12-23: no PE, pulm infiltrates/mass/effusion
Subjective Data
-
Date of Service:
Date of Service: May 14, 2023
Chief Complaint: Pulmonary Follow Up
Subjective:
Could not sleep well, sleepy this morning, arousable, poor historian
Review of Systems
General: Other (poor historian)
Objective Data
Data Reviewed
Vital Signs / I&O / Oxygen:
Vital Signs
Temp Pulse Resp BP Pulse Ox
97.8 F 61 20 168/84 96
05/14/23 07:55 05/14/23 08:52 05/14/23 07:55 05/14/23 08:52 05/14/23 07:55
Intake and Output
05/13/23 05/14/23 05/15/23
06:59 06:59 06:59
Intake Total 980 / 980 2400 / 2400
Output Total 1200 / 1200
Balance -220 / -220 2400 / 2400
SaO2 96
Nasal Cannula flow liters per 2
minute
Physical Exam
General: Comfortable
HEENT: Normocephalic and Moist Mucous Membranes
Cardiovascular: Regular Rhythm, Murmur (n) and Peripheral Edema (n)
Respiratory: Wheeze (n at time of visit), Rhonchi, Accessory Resp Muscle Use (n) and Stridor
GI: Soft, Non Distended and Non Tender
Neurology: Oriented and No Motor Deficits
Skin: Dry
Labs/Micro/Reports
Lab Data
05/14/23 07:25
05/14/23 07:25
--- NOTE | 2023-05-14 16:39 | CM ---
CM following re: d/c planning
Chart reviewed
Pt discharge not anticipated for the next day or two
Psych is following, has adjusted some medications and recommends [facility] is contacted
CM called and spoke with Antonio BENOIT and he mentioned possibly speaking with the patient this evening to assess and offer resources
Antonio states if he does not get time to speak with the patient this evening he will leave a note for Brooke to follow up in the a.m.
Pt remains on 2L NC and does not have home O2 CM to watch for needs
Pt to continue oral steroid & antibiotic as directed
CM will continue to monitor patient progress and f/u with KAYCEE
PLAN; CM following for needs
[2023-05-14] MEDS: DUONEB 3 ML INH (20:41)
[2023-05-14] MEDS: ZYPREXA 20 MG PO (21:38)
[2023-05-15] VITALS (8 sets, daily range): BP systolic 130–171; BP diastolic 58–93; BMI 32.2
[2023-05-15] MEDS: TYLENOL 650 MG PO ×2 (05:04→11:59)
[2023-05-15] MEDS: ZOFRAN 4 MG IV (05:35)
[2023-05-15 08:02] LABS: Hematocrit 38.8 % (37.0-47.0); Hemoglobin 13.2 g/dL (12.0-16.0); Mean Corpuscular Hgb 32.8 pg (27.0-31.0); Mean Corpuscular Volume 96.5 fL (81.0-99.0); Mean Platelet Volume 9.7 fL (7.4-10.4); Platelet Count 248 10^3/uL (130-400); Red Blood Cell Count 4.02 10^6/uL (4.20-5.40); Red Cell Dist. Width 14.9 % (11.5-14.5); White Blood Cell Count 9.4 10^3/uL (4.8-10.8)
[2023-05-15 08:36] LABS: Blood Urea Nitrogen 22 mg/dl (7-17); Calcium 9.9 mg/dl (8.4-10.2); Carbon Dioxide 22 mmol/L (22-30); Chloride 107 mmol/L (98-107); Estimated Creatinine Clearance 54 ml/min; Glucose 89 mg/dl (70-99); Magnesium 2.2 mg/dl (1.6-2.3); Potassium 3.8 mmol/L (3.5-5.1); Sodium 140 mmol/L (135-145); eGFR > 60.00
[2023-05-15] MEDS: INDERAL 20 MG PO ×3 (09:24→21:49)
[2023-05-15] MEDS: DELTASONE 40 MG PO (09:24)
[2023-05-15] MEDS: VIBRAMYCIN 100 MG PO ×2 (09:24→20:12)
[2023-05-15] MEDS: MUCINEX 600 MG PO ×2 (09:24→20:12)
[2023-05-15] MEDS: THIAMINE INJECTION 200 MG IV ×2 (09:25→20:12)
[2023-05-15] MEDS: NICODERM TRANSDERMAL 14 MG TRANSDERM (09:25)
[2023-05-15] MEDS: HEPARIN 5000 UNITS SC ×2 (09:25→20:10)
[2023-05-15] MEDS: KLONOPIN 1 MG PO ×3 (09:25→21:49)
[2023-05-15] MEDS: DESENEX/MITRAZOL/ZEASORB 1 APPLIC TOPICAL ×2 (09:32→20:10)
--- NOTE | 2023-05-15 10:44 | W.PN.UPDATE ---
Update Note
Progress Note Update
Patient seen at bedside, chart reviewed, discussed with staff. Ms. Coffey is awake, alert, and oriented. She is cooperative and pleasant. She no longer agrees to rehab for benzo dependance. She tells me Dr. Boyle (her previous psychiatrist who's
practice has since closed per the chart) will continue her klonopin for her so she is not worried. No overt signs of withdrawal with dose decreased here in hospital. She denies any depression or anxiety symptoms at this time. Lexapro was DC'd
related to QTC prolongation. Sleep is reported as poor. I am concerned that without rehab, she will be at risk for withdrawal as she does not have a current provider to follow up with (PCP will no longer prescribe benzo by her report). Insight is
poor. I have asked her to reconsider rehab but she tells me she misses her boyfriend too much and just wants to go home.
Impression/Plan: Benzo dependence, unspecified - dose of Klonopin decreased from 2mg TID to 1mg TID with no s/s of withdrawal. Plan for discharge should include follow up for benzo taper or continuation. Strongly suggest inpatient rehab. History of
Bipolar disorder stable on Zyprexa, dose lowered to 20mg from 25mg r/t sedation. Lexapro DC's for QTC prolongation, may consider restarting if cardiology agrees. Could also replace with Remeron which may also offer benefit for reported sleep issues.
Would monitor for now.
--- NOTE | 2023-05-15 12:10 | CM ---
manager field reviewed patient's chart and plan was for inpatient treatment through [facility], physical therapy evaluated patient and recommended skilled placement. Last inpatient psychiatric stay was over 3 years ago per psych therefore patient will
not require a level 2. Patient will need to participate in physical therapy in order to qualify for skilled placement. [facility] to meet with patient today.
Plan; To follow with and assist with discharge planning for patient.
--- NOTE | 2023-05-15 12:43 | PN.CDI ---
CDI
- -
CDI:
Physician Documentation Request
Admit Date: 05/12/23 18:57
Dear Doctor Beatrice,
Patient presented with shortness of breath. Progress notes state '#Alcohol use disorder - No alcohol withdrawal issues at this point but monitor'
Highest recorded MSAS was 4.
2/4 PHYSICS TEACHER note states 'RN states pt visibly anxious. For now will order 0.5mg clonazepam tid prn to prevent withdrawal'
If possible, please provide further specificity the alcohol use:
Mild
Moderate/severe
other
Use of terms such as suspected, likely, concern for, or probable (associated with a specific diagnosis that is being evaluated, monitored, or treated as if it exists) are acceptable and can be coded in the inpatient setting, when documented at the
time of discharge.
Thank you,
Viki Bailey RN, BSN
CDI Specialist
tiger text
Please use your independent medical judgment in providing your response.
[2023-05-15] MEDS: ULTRAM 50 MG PO (14:24)
--- NOTE | 2023-05-15 15:13 | W.PN.HOSP.TC ---
Today's Communication/Plan
-
d/c planing
Assessment / Plan
Assessment / Plan
#SOB
-Seen and reviewed CT scan of the chest and no evidence of PE nor evidence of pneumonia. Procalcitonin < 0.05
-She is a smoker and currently on oral steroids and antibiotics.
-Appreciated pulm consult--> recommended continue current treatment.
-PT OT evaluation and recommended rehab
#Depression, unspecified/ Hx Bipolar/ Benzodiazepine dependence, unspecified:
-She is on quite high doses of benzodiazepines as outpatient and multiple other psychoactive medicines. Discussed with psychiatrist today on 05/13 and psychiatry will continue all his medications.
-TSH abnormal, B12 more than 1000
-Current psychiatric medications: Klonopin 1 mg p.o. 3 times daily, Zyprexa 10 mg nightly, propranolol 20 mg p.o. 3 times daily.
-Patient plan to be seen by because again today for further disposition planning
# Thyroid function test abnormalities:
-Low TSH but normal free T4-->Repeated TSH and it is back normal, 0.68. Now free T3 mildly abnormal.
-Overall given normal findings on repeat, no need to treat but would follow up as outpatient ro inpatient if she stays long.
#Hypokalemia:
-Replete and trend
#Anemia:
-No signs of bleeding and hemoglobin stable 11.7 today
-Continue to monitor
#Left proximal humerus fracture:
-Nonsurgical approach, continue sling
-Added tramadol for pain control
#Increased lactate:
-Back to normal
#Hepatitis C:
-Per report she had treatment in the past.
#Nicotine use disorder:
-Continue nicotine patch
#Alcohol use disorder:
-No alcohol withdrawal issues at this point but monitor
DVT prophylaxis:
Heparin subcu
CODE STATUS:
Full code
Anticipated Discharge: Today
Subjective/Interval History
-
Date of Service: May 15, 2023
Resting comfortably in bed, complaining of left shoulder/arm pain
No other issues overnight
Objective Data
-
Labs:
Laboratory Results
05/15/23
06:38
WBC 9.4
Hgb 13.2
Hct 38.8
Plt Count 248
Sodium 140
Potassium 3.8
Chloride 107
Carbon Dioxide 22
BUN 22 H
Creatinine 1.0
Glucose 89
Calcium 9.9
Vital Signs:
Vital Signs
Temp Pulse Resp BP Pulse Ox
98.2 F 54 16 160/81 97
05/15/23 11:38 05/15/23 11:38 05/15/23 11:38 05/15/23 11:38 05/15/23 11:38
I&O
05/14/23 05/15/23 05/16/23
06:59 06:59 06:59
Intake Total 2400 / 2400 3120 / 3120
Output Total 750 / 750
Balance 2400 / 2400 2370 / 2370
Review of Systems
-
Respiratory: Reports No Symptoms
Cardiac: Reports No Symptoms
Abdomen/GI: Reports No Symptoms
Physical Exam
-
General: Negative Respiratory Distress
HEENT: Negative Oxygen
Respiratory: Clear to Auscultation
Cardiac: Regular Rhythm and S1/S2; Negative Murmur
GI: Soft, Nontender and Nondistended
Musculoskeletal: No Clubbing, No Cyanosis and Other (Left arm in sling )
Neuro: Awake, Alert, Oriented and No Motor Deficits
--- NOTE | 2023-05-15 16:14 | W.PN.PUL3 ---
Today's Communication / Plan
-
Pred
BDs
Reconsult prn
Assessment
-
Assessment:
Mrs Jemima Coffey is a 62/W adm 05-12 with acute onset dyspnea that woke her up from asleep. At ER, poor historian, tachypneic, anxious. Started on O2, BDs, CS on adm. At time of visit, mentation has improved, conversant, cooperative with interview
and physical exam. Confirms h/o chronic smoking, states has quit etoh about 1 y ago, uses medical marijuana. Never seen by pulm, not on home O2 or BDs
Impression:
AECOPD, mild
Hypokalemia, replaced
Normal troponin and BNP
Resolved lactic acidosis
Normal fT4
COVID
Negative etoh level
Conditions SPORTS MANAGER:
L humeral fracture
COVID positive Apr 2022
HLD
Bipolar disorder
DVT
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
Hepatitis C
Removal of an ovarian cyst
Lumpectomy
Smoker
Chronic alcoholic
Marijuana use
Plan:
Currently on RA, POx 97%
Comfortable, speaks in full sentences
Maintaining patent airway
Not on home O2 or BDs
Confirms chronic h/o tobacco dependence, expressed desire to quit smoking (started NRT as inpatient)
Continue DNs prn
Continue prednisone 40 mg qd, complete 5 d regimen
Continue doxycycline 100 mg po bid, complete 5 d regimen
Seen by Psych: bzd dependence
Plan for inpatient rehab, patient agreed
OOB to chair as tolerated
PT/OT
Disposition efforts, no objection to inpatient rehab as rec by Psych
Reconsult prn
Diagnostic tests:
CXR 05-12-23, c/w Apr 2022, no gross infiltrates
Chest CTA 05-12-23: no PE, pulm infiltrates/mass/effusion
Subjective Data
-
Date of Service:
Date of Service: May 15, 2023
Chief Complaint: Pulmonary Follow Up
Subjective:
No resp events reported
Comfortable on RA
Review of Systems
General: Fever (n), Sweats (n) and Chills (n)
Cardiopulmonary: Dyspnea and Cough (n)
GI: Abdominal Pain (n), Nausea (n) and Vomiting (n)
Neuro: Weakness
Objective Data
Data Reviewed
Vital Signs / I&O / Oxygen:
Vital Signs
Temp Pulse Resp BP Pulse Ox
98.2 F 57 16 158/93 97
05/15/23 15:57 05/15/23 15:57 05/15/23 15:57 05/15/23 15:57 05/15/23 15:57
Intake and Output
05/14/23 05/15/23 05/16/23
06:59 06:59 06:59
Intake Total 2400 / 2400 3120 / 3120
Output Total 750 / 750
Balance 2400 / 2400 2370 / 2370
SaO2 97
Nasal Cannula flow liters per 2
minute
Physical Exam
General: Comfortable
HEENT: Normocephalic and Moist Mucous Membranes
Cardiovascular: Regular Rhythm, Murmur (n) and Peripheral Edema (n)
Respiratory: Wheeze (n at time of visit), Rhonchi, Accessory Resp Muscle Use (n) and Stridor
GI: Soft, Non Distended, Non Tender and Normal Bowel Sounds
Neurology: Oriented and No Motor Deficits
Skin: Dry
Labs/Micro/Reports
Lab Data
05/15/23 06:38
05/15/23 06:38
--- NOTE | 2023-05-15 18:24 | PTCARENOTE ---
offeredpatient washing several times refused every time.
[2023-05-15] MEDS: ZYPREXA 20 MG PO (21:49)
[2023-05-16 03:16] VITALS: BP 152/70
[2023-05-16] MEDS: TYLENOL 650 MG PO ×2 (04:50→20:29)
[2023-05-16 05:55] VITALS: BMI 32.1
[2023-05-16 07:00] VITALS: BP 160/75
[2023-05-16] MEDS: DELTASONE 40 MG PO (08:38)
[2023-05-16] MEDS: MUCINEX 600 MG PO ×2 (08:39→19:28)
[2023-05-16] MEDS: VITAMIN B1 100 MG PO ×2 (08:39→19:28)
[2023-05-16] MEDS: VIBRAMYCIN 100 MG PO ×2 (08:39→19:28)
[2023-05-16] MEDS: KLONOPIN 1 MG PO ×3 (08:39→21:50)
[2023-05-16] MEDS: INDERAL 20 MG PO ×3 (08:39→21:53)
[2023-05-16] MEDS: NICODERM TRANSDERMAL 14 MG TRANSDERM (08:39)
[2023-05-16] MEDS: HEPARIN 5000 UNITS SC ×2 (08:40→19:29)
[2023-05-16] MEDS: DESENEX/MITRAZOL/ZEASORB 1 APPLIC TOPICAL ×2 (08:41→19:28)
[2023-05-16 10:01] VITALS: PULSE 57; O2SAT 95
[2023-05-16 11:00] VITALS: BP 128/66
[2023-05-16] MEDS: ULTRAM 50 MG PO (12:12)
--- NOTE | 2023-05-16 13:12 | CM ---
Addendum entered by Bonnie Ledesma 05/16/23 15:48:
manager social responsibility spoke with patient and patient's states that her daughter, Amaya will be transporting her to home this evening, per patient her daughter works till 5:30pm, and will come to the hospital after work to pick patient up, per patient her
boyfriend is a home currently but he does not a have a car.
Plan; Patient's daughter to transport patient to home this evening after work.
Addendum entered by Bonnie Ledesma 05/16/23 15:11:
Plan is to home, patient is agreeable to visiting nurses, and [facility]. Two messages left for patient's daughter regarding transport for patient to home this evening. Per patient her daughter is currently at work.
Original Note:
manager social responsibility spoke with Brooke at [facility] and patient has declined treatment options after discharge, family caseworker spoke with patient regarding possible skilled placement and patient refuses to go to a skilled facility.
Plan; [facility] and skilled [facility].
--- NOTE | 2023-05-16 13:13 | W.PN.HOSP.TC ---
Today's Communication/Plan
-
d/c home
Assessment / Plan
Assessment / Plan
#COPD exacerbation
-Seen and reviewed CT scan of the chest and no evidence of PE nor evidence of pneumonia. Procalcitonin < 0.05
-She is a smoker and currently on oral steroids and antibiotics.
-Appreciated pulm consult--> recommended continue current treatment.
-PT OT evaluation and recommended rehab
#Depression, unspecified/ Hx Bipolar/ Benzodiazepine dependence, unspecified:
-She is on quite high doses of benzodiazepines as outpatient and multiple other psychoactive medicines. Discussed with psychiatrist today on 05/13 and psychiatry will continue all his medications.
-TSH abnormal, B12 more than 1000
-Current psychiatric medications: Klonopin 1 mg p.o. 3 times daily, Zyprexa 10 mg nightly, propranolol 20 mg p.o. 3 times daily.
-Patient plan to be seen by because again today for further disposition planning
# Thyroid function test abnormalities:
-Low TSH but normal free T4-->Repeated TSH and it is back normal, 0.68. Now free T3 mildly abnormal.
-Overall given normal findings on repeat, no need to treat but would follow up as outpatient ro inpatient if she stays long.
#Hypokalemia:
-Replete and trend
#Anemia:
-No signs of bleeding and hemoglobin stable 11.7 today
-Continue to monitor
#Left proximal humerus fracture:
-Nonsurgical approach, continue sling
-Added tramadol for pain control
#Increased lactate:
-Back to normal
#Hepatitis C:
-Per report she had treatment in the past.
#Nicotine use disorder:
-Continue nicotine patch
#Alcohol use disorder:
-No alcohol withdrawal issues at this point but monitor
DVT prophylaxis:
Heparin subcu
CODE STATUS:
Full code
Discussed care plan with patient daughter and boyfriend (pt lives with boyfriend) -daughter Holly understands patient would benefit with rehab although complex social-financial situation and patient will be discharged home with home care. Patient
high risk for readmission and further complication. Daughter and understands.
Total time spent coordinating care : 55 mins
Anticipated Discharge: Today
Subjective/Interval History
-
Date of Service: May 16, 2023
no acute issues
Objective Data
-
Vital Signs:
Vital Signs
Temp Pulse Resp BP Pulse Ox
97.7 F 50 18 128/66 93
05/16/23 11:00 05/16/23 11:00 05/16/23 11:00 05/16/23 11:00 05/16/23 11:00
I&O
05/15/23 05/16/23 05/17/23
06:59 06:59 06:59
Intake Total 3120 / 3120 3080 / 3080
Output Total 750 / 750 1600 / 1600
Balance 2370 / 2370 1480 / 1480
Review of Systems
-
Respiratory: Reports No Symptoms
Cardiac: Reports No Symptoms
Abdomen/GI: Reports No Symptoms
Physical Exam
-
General: Negative Respiratory Distress
HEENT: Negative Oxygen
Respiratory: Clear to Auscultation
Cardiac: Regular Rhythm and S1/S2; Negative Murmur
GI: Soft, Nontender and Nondistended
Musculoskeletal: No Cyanosis and Other (Left arm in sling )
Neuro: Awake, Alert, Oriented and No Motor Deficits
--- NOTE | 2023-05-16 13:32 | W.PN.UPDATE ---
Update Note
Progress Note Update
patient seen chart reviewed. discussed w nursing and with dr clay via tiger text. the patient wants to leave. she does not believe she needs to go to in patient rehab. tried to impress upon her that this is a mistake. she says she does not need
to go to rehab and can deal with this issue on her own. the last admit we sent her with klonopin but she did not heed our recommendations as to how to taper it. i would not send her with a supply of klonopin as she will not be able to use this
medication responsibility and the whole scenario will recommence. i told her this today. she is also aware that it is not safe to stop it cold turkey. the only solution is for her to go to rehab but she will not agree and she is competent to make
her own medical decisions at this point. psych will sign off.
[2023-05-16 15:00] VITALS: BP 122/73
--- NOTE | 2023-05-16 15:30 | PN.CDI ---
CDI
- -
CDI:
Physician Documentation Request
Admit Date: 05/12/23 18:57
Dear Doctor Latrell,
Patient presented to the ED from home due to shortness of breath.
Pulmonary consult states 'Impression, AECOPD mild'
Hospitalist notes ' Seen and reviewed CT scan of the chest and no evidence of PE nor evidence of pneumonia...She is a smoker and currently on oral steroids and antibiotics'
Please indicate in your progress notes if you are in agreement that the above diagnosis is valid for this patient:
____ - acute exacerbation of COPD is a valid diagnosis (Please include it in your progress notes)
____ - acute exacerbation of COPD is not a valid diagnosis for this patient
____ - Other
Use of terms such as suspected, likely, concern for, or probable are acceptable for a diagnosis that is being evaluated, monitored or treated as if it exists and can be coded in the inpatient setting, when documented at the time of discharge.
Thank you,
Viki Bailey RN, BSN
CDI Specialist
tiger text
Please use your independent medical judgment in providing your response.
--- NOTE | 2023-05-16 16:40 | VNURNOTE ---
Home Health Liaison spoke with patient at 1615 to discuss [facility] nurse/therapy, visits, schedule and homebound status. Patient is agreeable and understands that visits at home will be 2-3 x per week to assess and teach medical management.
Patient is aware that [facility] will contact them for start of care in 1-2 days after discharge from .
[facility] referral completed in [facility].
[2023-05-16] MEDS: ZYPREXA 20 MG PO (21:50)
[2023-05-16 23:00] VITALS: BP 140/73
[2023-05-17 04:25] VITALS: BMI 31.9
[2023-05-17] MEDS: TYLENOL 650 MG PO ×2 (04:26→09:11)
[2023-05-17 07:00] VITALS: BP 130/66
[2023-05-17] MEDS: MUCINEX 600 MG PO (08:56)
[2023-05-17] MEDS: INDERAL 20 MG PO (08:56)
[2023-05-17] MEDS: DELTASONE 40 MG PO (08:56)
[2023-05-17] MEDS: KLONOPIN 1 MG PO (08:57)
[2023-05-17] MEDS: VIBRAMYCIN 100 MG PO (08:57)
[2023-05-17] MEDS: VITAMIN B1 100 MG PO (08:57)
[2023-05-17] MEDS: NICODERM TRANSDERMAL 14 MG TRANSDERM (09:00)
[2023-05-17] MEDS: HEPARIN 5000 UNITS SC (09:00)
[2023-05-17] MEDS: DESENEX/MITRAZOL/ZEASORB 1 APPLIC TOPICAL (09:01)
--- NOTE | 2023-05-17 11:28 | CM ---
retail business development manager reviewed patient's chart and spoke with patient's daughter, Amaya this am per patient's daughter she refused to pick patient up because she wants her mother to go to rehab, employment case manager met with patient and had a long conversation
regarding the benefits of rehab and patient still refused rehab, patient's daughter Amaya discussed rehab and patient still refuses, patient's daughter will not transport patient to home, Lyft will be set up.
Plan; [facility]
--- NOTE | 2023-05-17 11:45 | W.PN.HOSP.TC ---
Today's Communication/Plan
-
d/c home
Assessment / Plan
Assessment / Plan
# COPD exacerbation
-Seen and reviewed CT scan of the chest and no evidence of PE nor evidence of pneumonia. Procalcitonin < 0.05
-She is a smoker and currently on oral steroids and antibiotics.
-Appreciated pulm consult--> recommended continue current treatment.
-PT OT evaluation and recommended rehab
# Depression, unspecified
Hx Bipolar/ Benzodiazepine dependence, unspecified:
-She is on quite high doses of benzodiazepines as outpatient and multiple other psychoactive medicines. Discussed with psychiatrist today on 05/13 and psychiatry will continue all his medications.
-TSH abnormal, B12 more than 1000
-Current psychiatric medications: Klonopin 1 mg p.o. 3 times daily, Zyprexa 10 mg nightly, propranolol 20 mg p.o. 3 times daily.
-Discussed with psychiatry who recommended against giving any Klonopin at discharge. Patient not possible due to able to manage proper dosing and monitoring her side effects with Klonopin therapy.
# Thyroid function test abnormalities:
-Low TSH but normal free T4-->Repeated TSH and it is back normal, 0.68. Now free T3 mildly abnormal.
-Overall given normal findings on repeat, no need to treat but would follow up as outpatient ro inpatient if she stays long.
#Hypokalemia:
-Replete and trend
#Anemia:
-No signs of bleeding and hemoglobin stable 11.7 today
-Continue to monitor
#Left proximal humerus fracture:
-Nonsurgical approach, continue sling
-Added tramadol for pain control
#Increased lactate:
-Back to normal
#Hepatitis C:
-Per report she had treatment in the past.
#Nicotine use disorder:
-Continue nicotine patch
#Alcohol use disorder:
-No alcohol withdrawal issues at this point but monitor
DVT prophylaxis:
Heparin subcu
CODE STATUS:
Full code
More than 30 minutes spent in discharge including
Final examination of the patient
Summarizing hospital stay
Instructions for continuing care to all relevant caregivers
Preparation of discharge records, prescriptions, and referral forms
Total time spent (in minutes): 38 mins
Anticipated Discharge: Today
Subjective/Interval History
-
Date of Service: May 17, 2023
No complaints overnight
Objective Data
-
Vital Signs:
Vital Signs
Temp Pulse Resp BP Pulse Ox
97.4 F 51 18 130/66 96
05/17/23 07:00 05/17/23 07:00 05/17/23 07:00 05/17/23 07:00 05/17/23 08:40
I&O
05/16/23 05/17/23 05/18/23
06:59 06:59 06:59
Intake Total 3080 / 3080 2640 / 2640
Output Total 1600 / 1600
Balance 1480 / 1480 2640 / 2640
Review of Systems
-
Respiratory: Reports No Symptoms
Cardiac: Reports No Symptoms
Abdomen/GI: Reports No Symptoms
Physical Exam
-
General: Negative Appears in Distress
HEENT: Negative Oxygen
GI: Soft, Nontender and Nondistended
Musculoskeletal: Other (Left arm in sling )
Neuro: Awake, Alert, Oriented and No Motor Deficits
--- NOTE | 2023-05-18 07:26 | W.DCSUMMARY ---
Discharge Summary
Discharge Data
Date of Admission: 05/12/23
Date of Discharge: 05/17/23
-
Pending Results: No
Hospital Course
Discharging Physician : Dr Jacoby Sams
Disposition : Home
Primary care physician : Dr Garry Jones
Principal Discharge diagnosis :
Chronic obstructive pulmonary disease flareup
Benzodiazepine dependence
Left proximal humeral fracture
Chronic Discharge diagnosis :
Bipolar disorder
Depression
Chronic anemia
History of hepatitis C
Alcohol use disorder
Tobacco abuse
Hospital Course :
Patient is a 62-year-old female with above-mentioned past medical history came to ER with new onset of shortness of breath respiratory rate cough for 1 week.
COPD flare up -patient primary presented for shortness of breath/cough ongoing for 1 week. Patient is a current tobacco user and exam suggestive of possible COPD. Patient does not have any formal diagnosis of COPD. CT scan of chest rule out any
PE or pneumonia. Patient was started on steroid therapy and pulmonology was asked to evaluate patient as well. Pulmonology recommended to finish short course of antibiotic and patient to be maintained on steroids. Patient was discharged off of
steroids as no significant pulmonary complaints.
Benzodiazepine dependence -patient on high-dose of benzodiazepine with other multiple psychoactive medication. Psychiatry was involved in care who wean patient off of Klonopin. Patient will need to follow-up with psychiatry outpatient basis for
continued evaluation.
Left proximal humerus fracture -patient had mechanical fall and humerus fracture on 05/01/2023. Patient currently have sling in place and was provided pain medication for symptomatic care. Patient instructed to follow-up with orthopedic surgeon
postdischarge. Patient was directed by physical therapy who has recommended rehab although patient declined. This was discussed with patient daughter and significant other although patient remains against going to rehab.
Important imaging findings :
None
Procedure findings :
None
Discharge Plan
-
Patient Disposition: Home with Home Care
Discharge Diagnosis/Procedures: COPD exacerbation, benzodiazepine dependent
Condition: Fair
Diet: Regular
Activity: As tolerated
Driving Restrictions: No driving
Bathing Restrictions: OK to Shower
Other Services: [facility]
Activity Restrictions/Additional Instructions:
Please call Dr Vega's office for a follow up appointment for left arm fracture evaluation.
Referrals:
Stoney Vega MD [Active] - in one week
Javier Jones MD [Family Provider] - in one week
Prescriptions:
New
acetaminophen [Tylenol Extra Strength] 500 mg tablet
1,000 mg PO Q6H PRN (Reason: Pain) Qty: 90 0RF
ibuprofen 600 mg tablet
600 mg PO TID PRN (Reason: Pain) Qty: 30 0RF
Rx Instructions:
USE ONLY IF TYLENOL DOES NOT HELP WITH PAIN
Continued
olanzapine 5 mg tablet
5 mg PO HS
propranolol 20 mg tablet
20 mg PO TID
olanzapine 20 mg tablet
20 mg PO HS
escitalopram oxalate 10 mg tablet
10 mg PO DAILY
Discontinued
clonazepam 2 mg tablet
2 mg PO DAILY
Patient Comments:
05/12/2023: last filled 05/11/23, 180 tabs for 90 days from [facility]
clonazepam 2 mg tablet
4 mg PO HS
Patient Comments:
05/12/2023: last filled 05/11/23, 180 tabs for 90 days from [facility]
Discharge Orders:
Discharge Patient (As Directed); Ordered 05/17/23
Ordered By: Jacoby Sams
Discharge Date and Time
Discharge Date/Time: 05/17/23 14:55
== END 2023-05-17 14:55 | disposition home health service (06) | DRG 191 ==
LOC: 4 WEST ACU 18:57
PROVIDERS: Nurse Practitioner; Nurse Practitioner Family; Physician Assistant Medical; ADMITTING PHYSICIAN Hospitalist; ATTENDING PHYSICIAN Hospitalist; CONSULT PHYSICIAN Psychiatry & Neurology Psychiatry; EMERGENCY PHYSICIAN Emergency Medicine; FAMILY PHYSICIAN Internal Medicine; OTHER PHYSICIAN Internal Medicine Pulmonary Disease
DX: J44.1 Chronic obstructive pulmonary disease with (acute) exacerbation (principal); E87.20 Acidosis, unspecified; S42.202A Unspecified fracture of upper end of left humerus, initial encounter for closed fracture; F31.89 Other bipolar disorder; F13.20 Sedative, hypnotic or anxiolytic dependence, uncomplicated; D64.9 Anemia, unspecified; J44.0 Chronic obstructive pulmonary disease with (acute) lower respiratory infection; F41.9 Anxiety disorder, unspecified; F17.210 Nicotine dependence, cigarettes, uncomplicated; R94.6 Abnormal results of thyroid function studies; E78.00 Pure hypercholesterolemia, unspecified; E87.6 Hypokalemia; F10.10 Alcohol abuse, uncomplicated; F12.90 Cannabis use, unspecified, uncomplicated; Z88.8 Allergy status to other drugs, medicaments and biological substances; Z11.52 Encounter for screening for COVID-19; Z86.73 Personal history of transient ischemic attack (TIA), and cerebral infarction without residual deficits; Z86.19 Personal history of other infectious and parasitic diseases; Z86.16 Personal history of COVID-19
CPT/HCPCS: 71046; 71275; 80048; 80053; 82077; 82607; 83605; 83735; 83880; 84145; 84439; 84443; 84481; 84484; 85025; 85027; 86140; 87811; 93005; 94640; 96374; 96375; 97116; 97162; 97166; 97530; 99285; Q9967

== ENCOUNTER 2023-07-30 17:59 | Emergency (ER) | payer OTHER, SELFPAY ==
[2023-07-30 18:02] VITALS: BP 127/84
[2023-07-30 18:19] LABS: % Basophils 0.2 % (0-2); % Immature Granulocytes 0.2 % (0-0.5); % Lymphocytes 23.6 % (20.5-51.1); % Monocytes 7.5 % (1.7-9.3); % Neutrophils 68.5 % (42.2-75.2); Absolute Lymphocytes 2.1 10^3/uL (1.2-3.4); Absolute Monocytes 0.7 10^3/uL (0.1-0.6); Absolute Neutrophils 6.2 10^3/uL (1.4-6.5); Hematocrit 40.9 % (37.0-47.0); Hemoglobin 14.3 g/dL (12.0-16.0); Mean Corpuscular Hgb 32.7 pg (27.0-31.0); Mean Corpuscular Volume 93.6 fL (81.0-99.0); Mean Platelet Volume 10.1 fL (7.4-10.4); Nucleated Red Blood Cells % 0 %; Platelet Count 157 10^3/uL (130-400); Red Blood Cell Count 4.37 10^6/uL (4.20-5.40); Red Cell Dist. Width 13.3 % (11.5-14.5)
[2023-07-30 18:33] LABS: ALT (SGPT) 13 U/L (0-35); AST (SGOT) 19 U/L (14-36); Albumin 4.4 g/dl (3.5-5.0); Alkaline Phosphatase 92 U/L (38-126); Blood Urea Nitrogen 17 mg/dl (7-17); Calcium 10.4 mg/dl (8.4-10.2); Carbon Dioxide 23 mmol/L (22-30); Chloride 106 mmol/L (98-107); Glucose 113 mg/dl (70-99); Potassium 3.7 mmol/L (3.5-5.1); Sodium 134 mmol/L (135-145); Total Bilirubin 1.1 mg/dl (0.2-1.3); eGFR > 60.00
--- NOTE | 2023-07-30 21:30 | ED.GENMED ---
History of Present Illness
General
Chief Complaint: Weakness
Source: patient
Exam Limitations: none
Time Seen by Provider: 07/30/23 21:17
Travel History
Have you had any contact with someone who has COVID-19?: No
Do you have any symptoms of coronavirus? Fever > 100 degrees, chills, cough, shortness of breath, sore throat, loss of taste or smell, muscle aches, or headache?: No
History of Present Illness
History of Present Illness:
This is a 62 year old female that comes in with multiple complaints. State that she feels that she has been having Palpitations. State that she feels like she can't focus as she was watching TV and was unable to say what she was watching. State that
she feels like she can't remember her address or phone numbers. States that this started about a month ago but today she felt it was really bad. Denies any medication changes. States that she has had some nausea and occasional chest tightness.
Denies any fever, chills, SOB, abd pain, vomiting, diarrhea, headache, dizziness, urinary burning.
Past History
Past History
ED Past Medical History: Hypercholesterolemia, Psychiatric (Bipolar disorder, Anxiety, Depression) and Other (Hepatitis C, Colitis)
ED Past Surgical History: , Gynecological (Removal of an ovarian, Lumpectomy, ), Tonsilectomy and Other (lumpectomy)
Social History
Tobacco: Smoker
Alcohol: Chronic alcoholic
Drug: Marijuana
Personal:
Living: with family
Employment: Disabled
Family History
Family History: CAD
Review of Systems
Review of Systems
All Other Systems: ROS reviewed and negative except as documented in HPI and ROS
Constitutional: Reports no symptoms; Denies fever or chills
EENT: Reports no symptoms
Respiratory: Reports no symptoms; Denies cough or trouble breathing
Cardiac: Reports chest pain (Tightness occasionally)
ABD/GI: Reports nausea; Denies abdominal pain, vomiting or diarrhea
: Reports no symptoms; Denies dysuria, frequency or urgency
Musculoskeletal: Reports no symptoms
Skin: Reports no symptoms
Neurological: Reports no symptoms; Denies dizzy or headache
Psychiatric: Reports no symptoms
Phy Exam
General Physical Exam
General Presentation: no apparent distress
General age: appears stated age
General Skin: warm and dry
General Habitus: normal
General Mental: alert
General Hydration: dry mucous membranes
ENT Exam
ENT Exam: TM's normal, pharynx normal and neck supple
Eye Exam
Eye Exam: EOMI
Cardiovascular Exam
Cardiovascular Exam: regular rate/rhythm, no edema, no murmur and normal peripheral pulses
Pulmonary Exam
Pulmonary Exam: lungs clear, no respiratory distress, no rales, chest non tender, no crackles, no rhonchi, no wheezing and no cough
Gastrointestinal Exam
Gastrointestinal Exam: normal bowel sounds, non tender, soft, no organomegaly, no pulsatile mass and non distended
Musculoskeletal Exam
Musculoskeletal Exam: full ROM and no edema
Skin Exam
Skin Exam: normal color, warm/dry, no rash and no petechia
Psychiatric Exam
Psychiatric Exam: normal mood/affect
Course
Orders/Labs/Results
Orders:
Orders
07/30/23 18:10
Complete Blood Count/With Diff Urgent
Comprehensive Metabolic Panel Urgent
TSH Reflex To Free T4 Urgent
Comment: ADD ON
07/30/23 21:29
CT Head W/o Iv Contrast Urgent
Comment:
Reason For Exam: Feels like she can't focus, Nausea,
07/30/23 21:30
Electrocardiogram (*1) Urgent
Reason for Study: Palpitations
EKG- Treatment ONCE
07/30/23 21:33
Urinalysis Reflex To Culture Urgent
Date Specimen was Collected: 07/30/23
Time Specimen was Collected: 21:31
Urine Microscopic Reflex Cult Urgent
Urine Culture Urgent
MIGUEL Source: U
Specimen Description:
Date Specimen was Collected: 07/30/23
Time Specimen was Collected: :
07/30/23 21:34
Add On- LAB Urgent
Tests Added?: TSH with reflex free T4
07/30/23 21:52
Troponin I Urgent
Abnormal Lab Results
07/30/23 07/30/23
18:10 21:33
MCH 32.7 H pg
(27.0-31.0)
Absolute Monos (auto) 0.7 H 10^3/uL
(0.1-0.6)
Sodium 134 L mmol/L
(135-145)
Glucose 113 H mg/dl
(70-99)
Calcium 10.4 H mg/dl
(8.4-10.2)
Urine Ketones 1+ A
(Negative)
Leukocyte Esterase Rfl Trace A
(Negative)
Urine Bacteria (Reflex) Moderate A
(Negative)
07/30/23 18:10
07/30/23 18:10
Glucose nonfasting. Calcium slightly elevated. Urine negative for infection. Troponin <0.012, TSH normal at 0.72
Vital Signs
Initial and Last Documented VS:
Initial Vital Signs
Temp Pulse BP Pulse Ox
99.6 F 78 127/84 100
07/30/23 18:02 07/30/23 18:02 07/30/23 18:02 07/30/23 18:02
Last Documented Vital Signs
Temp Pulse BP Pulse Ox
99.6 F 78 127/84 100
07/30/23 18:02 07/30/23 18:02 07/30/23 18:02 07/30/23 18:02
MDM/Problems Addressed
Differential Diagnosis Includes:
Psychiatric problem, CVA
MDM/Problems Addressed:
This is a 62 year old female that comes in with c/o feeling like she can't remember her address or phone number. States that she couldn't remember what show she was watching on TV. States that this has been going on for about a month.
Will check labs, CT head and urine.
Back into see patient. Explained that her blood work is normal the CT of her head is normal and her urine is negative. Explained that she may need to follow up with her psychiatrist as she may need her medication adjusted. Patient to return with any
concerns.
Chronic conditions affecting care: Psychiatric illness
Acute Exacerbation and/or Progression of Chronic Illness: Psychiatric illness
*Radiology
Radiology exam reviewed: radiology read reviewed (CT head-NO acute intracranial abnormality. Chronic findings as above. )
*Pulse Oximetry
Patient hypoxic: no
*EKG
Interpreted by ED Provider?: Yes
Heart Rate: 75
Rate: normal
Rhythm: sinus
[place]: normal axis
Interval: normal interval
QRS Pattern: normal QRS
Ischemia: no ischemia
*Plastic Sheeting Cutter Interpretation
Rate: Plastic Sheeting Cutter- N/A
*Critical Care Note
Total Time (30-74mins, 75-104mins- exclusive of procedures): Not Applicable
ED Attending Note
-
Portions of this chart may have been created with voice recognition software.� Occasional wrong word or��sound alike� substitutions may have occurred due to the inherent limitations of voice recognition software.
Discharge Plan
Departure
Patient Disposition: Home (Routine Discharge)
Date of Disposition: 07/30/23
Time of Disposition: 23:42
Patient with high blood pressure during this ER visit?: No
Condition: Good
Covid-19: Not Applicable
Discharge Problem:
difficulty Focusing
Prescriptions:
No Action
propranolol 20 mg tablet
20 mg PO TID
escitalopram oxalate 10 mg tablet
10 mg PO DAILY
Theragen Tablet
1 tab PO QPM
aspirin 81 mg Tablet,Delayed Release (Dr/Ec)
81 mg PO QPM
alprazolam 0.25 mg Tablet
0.25 mg PO DAILY
Patient Comments:
07/30/2023, last filled on 06/07/2023 for 30 tablets per PDMP.
clonazepam 2 mg Tablet
2 mg PO TID
Patient Comments:
07/30/2023, last filled on 05/24/2023 for 270 tablets per PDMP.
ibuprofen 200 mg Tablet
600 mg PO TIDPRN PRN (Reason: mild pain)
cyclosporine [Restasis] 0.05 % Dropperette
1 drp BOTH EYES BID
Patient Comments:
07/30/2023, [facility] records from 12/28/2020; per [facility] records this med. was discontinued on 03/24/2021 but pt. states she is still taking it.
CoQ-10
1 cap PO QPM
cholecalciferol (vitamin D3)
1 tab PO QPM
cyanocobalamin (vitamin B-12)
1 tab PO QPM
acetaminophen [Tylenol Extra Strength] 500 mg tablet
1,000 mg PO Q6H PRN (Reason: mild pain)
Referrals:
Javier Jones MD [Family Provider] - Follow up in 2-3 days
Activity Restrictions/Additional Instructions:
As discussed, your blood work is normal. Your CT of the head is negative for any acute process. Your urine is negative for infection. Please follow up with the family doctor and your Psychiatrist as you may need to have your medication adjusted.
Please increase your water intake to 8-8oz glasses daily. IF YOU HAVE ANY OTHER CONCERNS PLEASE RETURN TO THE EMERGENCY ROOM
Interventions
Interventions:
*Risk Screen - Suicide Last Done: 07/30/23 18:04
*General Assessment Last Done: 07/30/23 18:04
*Neglect/Abuse Screening Last Done: 07/30/23 18:04
*ED COVID-19 Vaccine History Last Done: 07/30/23 18:04
ED- Cardiac Assessment Last Done: 07/30/23 21:45
ED- Neurological Assessment Last Done: 07/30/23 21:45
ED- Pulmonary Assessment Last Done: 07/30/23 21:45
Discharge Date and Time
Print Language: VIETNAMESE
[2023-07-30 21:42] LABS: Urine Albumin Negative (Neg - Trace); Urine Bilirubin Negative (Negative); Urine Character Clear (Clear); Urine Color Yellow; Urine Glucose Negative (Negative); Urine Ketone 1+ (Negative); Urine Leukocyte Trace (Negative); Urine Nitrite Negative (Negative); Urine Occult Blood Negative (Negative); Urine Specific Gravity 1.015 (<1.030); Urine Urobilinogen Negative (Neg - 1+)
--- NOTE | 2023-07-30 21:47 | PHANOTE ---
07/30/2023, [facility] rec tech, spoke to pt. to obtain their med. history; pt. states to be taking Restasis (1 drp both eyes BID); however, according to [facility] records from 03/24/2021, this med. was discontinued; could not confirm with another source.
[2023-07-30 21:48] LABS: Urine Squamous Cell 16-20 /LPF (Few)
[2023-07-30 21:50] LABS: Urine Bacteria Moderate (Negative); Urine Red Blood Cell 0-2 /HPF (0-2)
[2023-07-30 22:23] LABS: Troponin I < 0.012 ng/ml
[2023-07-30 22:44] LABS: TSH Reflex To Free T4 0.72 uIU/ml (0.47-4.68)
[2023-07-30 23:54] VITALS: BP 149/88
== END 2023-07-30 23:54 | disposition home or self-care (01) ==
LOC: EMR 17:59
PROVIDERS: Clinical Nurse Specialist Family Health; Emergency Medicine; EMERGENCY PHYSICIAN Emergency Medicine; FAMILY PHYSICIAN Internal Medicine
DX: R41.840 Attention and concentration deficit (principal); E78.00 Pure hypercholesterolemia, unspecified; F31.9 Bipolar disorder, unspecified; F41.9 Anxiety disorder, unspecified; F17.200 Nicotine dependence, unspecified, uncomplicated; Z86.19 Personal history of other infectious and parasitic diseases; Z82.49 Family history of ischemic heart disease and other diseases of the circulatory system
CPT/HCPCS: 99284; 70450; 80053; 81003; 81015; 84443; 84484; 85025; 87086; 93005

== ENCOUNTER → 2023-12-07 11:36 | Outpatient (REF) | payer OTHER, SELFPAY | LOC: HWRAD 11:36 | PROVIDERS: ATTENDING PHYSICIAN Internal Medicine | DX: R05.9 Cough, unspecified (principal); F17.200 Nicotine dependence, unspecified, uncomplicated | CPT/HCPCS: 71046 ==

== ENCOUNTER 2024-05-05 16:31 | Emergency (ER) | payer SELFPAY ==
[2024-05-05 16:37] VITALS: BP 144/98
--- NOTE | 2024-05-05 16:38 | ED.GENMED ---
ED Provider Triage
<Maxx Luz PA-C - Last Filed: 05/05/24 16:39>
-
Patient seen by provider in Triage?: Seen in Triage
Attestation: A medical screening examination has been initiated by a qualified medical provider. Based on the assessment performed at this time, it has been determined that an emergent medical condition may exist and the patient has been informed
that further medical evaluation and possible additional diagnostic testing may be needed.
HPI: 63-year-old female presenting to the ER for evaluation of increased depression with suicidal thoughts but without any plan or intent. Patient also stating she feels that she needs 'medication management'. Follows with
psychiatrist/psychologist at [facility]. Reports no alcohol or substance abuse today. Believes someone may have been following her in a car earlier today. Patient was brought back into the emergency department, placed on one-to-one observation
and crisis consultation ordered.
GENERAL: Alert , in no apparent distress
EYE: No visual abnormalities.
NECK: Trachea midline
ENT: No visible abnormalities.
LUNGS: No acute respiratory distress
NEUROLOGICAL: Alert and oriented
SKIN: Skin intact. No visible changes.
MUSCULOSKELETAL: Moving extremities normally
PSYCH: Normal and appropriate interaction.
This is a medical evaluation conducted in person to initiate diagnostic evaluation and provide initial therapeutics. Please see further documentation by the treating clinician.
History of Present Illness
<Maxx Luz PA-C - Last Filed: 05/05/24 16:39>
General
Chief Complaint: Crisis Evaluation
Time Seen by Provider: 05/05/24 17:42
<Jesus Beckett DO - Last Filed: 05/05/24 21:23>
General
Source: patient
History of Present Illness
History of Present Illness:
Patient presents with seeking help from [facility]. She believes she needs medication management. She states she sometimes has thoughts of suicide but no current thoughts or plans of hurting herself. She denies any medical issues at this time.
She denies doing anything to hurt herself today or recently. She smokes on a daily basis but denies alcohol or drug use. She is prescribed benzos and states she takes them only as directed.
Past History
<Maxx Luz PA-C - Last Filed: 05/05/24 16:39>
Past History
ED Past Medical History: Hypercholesterolemia, Psychiatric (Bipolar disorder, Anxiety, Depression) and Other (Hepatitis C, Colitis)
ED Past Surgical History: , Gynecological (Removal of an ovarian, Lumpectomy, ), Tonsilectomy and Other (lumpectomy)
Social History
Tobacco: Smoker
Alcohol: Chronic alcoholic
Drug: Marijuana
Personal:
Living: with family
Employment: Disabled
Family History
Family History: CAD
Phy Exam
<Jesus Beckett DO - Last Filed: 05/05/24 21:23>
Physical Exam
Physical Exam:
General: Awake, Alert, Oriented X3. No acute distress.
Vitals: unremarkable
Head: Atraumatic
Eyes: Pupils equal, EOMI
Throat: Airway intact, no exudates
Neck: Trachea midline
Lungs: Clear and equal b/l
Heart: Regular rate, no murmurs
Abd: Soft, Nontender, No pulsatile mass
Neuro: Grossly nonfocal
Skin: Warm, dry, no rash
Extremities: pulses equal b/l, no edema
Course
<Maxx Luz PA-C - Last Filed: 05/05/24 16:39>
Orders/Labs/Results
Orders:
Orders
05/05/24 16:37
Crisis Consult Urgent
Reason for Consult: suicidal thoughts
05/05/24 16:43
Complete Blood Count/With Diff Urgent
Comprehensive Metabolic Panel Urgent
Abnormal Lab Results
05/05/24
16:43
RBC 4.02 L 10^6/uL
(4.20-5.40)
MCH 34.1 H pg
(27.0-31.0)
Carbon Dioxide 19 L mmol/L
(22-30)
05/05/24 16:43
05/05/24 16:43
Vital Signs
Initial and Last Documented VS:
Initial Vital Signs
Temp Pulse Resp BP Pulse Ox
98.2 F 62 18 144/98 99
05/05/24 16:37 05/05/24 16:37 05/05/24 16:37 05/05/24 16:37 05/05/24 16:37
Last Documented Vital Signs
Temp Pulse Resp BP Pulse Ox
98.2 F 66 18 139/71 100
05/05/24 16:37 05/05/24 18:59 05/05/24 18:59 05/05/24 18:59 05/05/24 18:59
<Jesus H. Sujit, DO - Last Filed: 05/05/24 21:23>
Orders/Labs/Results
Orders:
Orders
05/05/24 16:37
Crisis Consult Urgent
Reason for Consult: suicidal thoughts
05/05/24 16:43
Complete Blood Count/With Diff Urgent
Comprehensive Metabolic Panel Urgent
Abnormal Lab Results
05/05/24
16:43
RBC 4.02 L 10^6/uL
(4.20-5.40)
MCH 34.1 H pg
(27.0-31.0)
Carbon Dioxide 19 L mmol/L
(22-30)
05/05/24 16:43
05/05/24 16:43
Vital Signs
Initial and Last Documented VS:
Initial Vital Signs
Temp Pulse Resp BP Pulse Ox
98.2 F 62 18 144/98 99
05/05/24 16:37 05/05/24 16:37 05/05/24 16:37 05/05/24 16:37 05/05/24 16:37
Last Documented Vital Signs
Temp Pulse Resp BP Pulse Ox
98.2 F 66 18 139/71 100
05/05/24 16:37 05/05/24 18:59 05/05/24 18:59 05/05/24 18:59 05/05/24 18:59
<Jesus Beckett DO - Last Filed: 05/05/24 21:23>
MDM/Problems Addressed
Differential Diagnosis Includes:
depression, anxiety, suicidal ideations,
MDM/Problems Addressed:
Patient presents to [facility] wanting to have her medications managed; and by medication medication she means her psychiatric medications. She does not quite know what medication she is prescribed or has been prescribed in the past. Patient
denies any suicidal homicidal ideations at this time. Patient was evaluated by [facility]. She also denies suicidal homicidal ideations for them. There is no indication to hold this patient against her will order for inpatient psychiatric
admission. [facility] No further treatment needed here in the emergency room.
<Jesus Beckett DO - Last Filed: 05/05/24 21:23>
*Pulse Oximetry
Patient hypoxic: no
*Critical Care Note
Total Time (30-74mins, 75-104mins- exclusive of procedures): Not Applicable
ED Attending Note
<Maxx Luz PA-C - Last Filed: 05/05/24 16:39>
-
Portions of this chart may have been created with voice recognition software.� Occasional wrong word or��sound alike� substitutions may have occurred due to the inherent limitations of voice recognition software.
Discharge Plan
Departure
Patient Disposition: Home (Routine Discharge)
Date of Disposition: 05/05/24
Time of Disposition: 18:45
Patient with high blood pressure during this ER visit?: No
Condition: Good
Discharge Problem:
Depression
Instructions: Depression, Adult (DC)
Prescriptions:
No Action
propranolol 20 mg tablet
20 mg PO TID
escitalopram oxalate 10 mg tablet
10 mg PO DAILY
Theragen Tablet
1 tab PO QPM
aspirin 81 mg Tablet,Delayed Release (Dr/Ec)
81 mg PO QPM
alprazolam 0.25 mg Tablet
0.25 mg PO DAILY
Patient Comments:
07/30/2023, last filled on 06/07/2023 for 30 tablets per PDMP.
clonazepam 2 mg Tablet
2 mg PO TID
Patient Comments:
07/30/2023, last filled on 05/24/2023 for 270 tablets per PDMP.
ibuprofen 200 mg Tablet
600 mg PO TIDPRN PRN (Reason: mild pain)
cyclosporine [Restasis] 0.05 % Dropperette
1 drp BOTH EYES BID
Patient Comments:
07/30/2023, [facility] records from 12/28/2020; per [facility] records this med. was discontinued on 03/24/2021 but pt. states she is still taking it.
CoQ-10
1 cap PO QPM
cholecalciferol (vitamin D3)
1 tab PO QPM
cyanocobalamin (vitamin B-12)
1 tab PO QPM
acetaminophen [Tylenol Extra Strength] 500 mg tablet
1,000 mg PO Q6H PRN (Reason: mild pain)
Activity Restrictions/Additional Instructions:
Please utilize the resources provided to you by [facility]
Interventions
Interventions:
*Risk Screen - Suicide Last Done: 05/05/24 16:33
*General Assessment Last Done: 05/05/24 16:37
*Nursing Disposition Last Done: 05/05/24 19:26
ED-Psychological Assessment Last Done: 05/05/24 19:01
Discharge Date and Time
Discharge Date/Time: 05/05/24 19:26
Print Language: BHUTANESE
[2024-05-05 17:07] LABS: % Basophils 0.2 % (0-2); % Immature Granulocytes 0.2 % (0-0.5); % Lymphocytes 30.1 % (20.5-51.1); % Monocytes 6.7 % (1.7-9.3); % Neutrophils 62.8 % (42.2-75.2); Absolute Lymphocytes 2.4 10^3/uL (1.2-3.4); Absolute Monocytes 0.5 10^3/uL (0.1-0.6); Absolute Neutrophils 5.1 10^3/uL (1.4-6.5); Hematocrit 39.2 % (37.0-47.0); Hemoglobin 13.7 g/dL (12.0-16.0); Mean Corp Hgb Conc. 34.9 g/dL (33.0-37.0); Mean Corpuscular Hgb 34.1 pg (27.0-31.0); Mean Corpuscular Volume 97.5 fL (81.0-99.0); Nucleated Red Blood Cells % 0 %; Platelet Count 199 10^3/uL (130-400); Red Blood Cell Count 4.02 10^6/uL (4.20-5.40); Red Cell Dist. Width 13.1 % (11.5-14.5); White Blood Cell Count 8.1 10^3/uL (4.8-10.8)
[2024-05-05 17:22] LABS: ALT (SGPT) 18 U/L (0-35); AST (SGOT) 18 U/L (14-36); Albumin 4.7 g/dl (3.5-5.0); Alkaline Phosphatase 101 U/L (38-126); Blood Urea Nitrogen 14 mg/dl (7-17); Calcium 10.1 mg/dl (8.4-10.2); Carbon Dioxide 19 mmol/L (22-30); Chloride 107 mmol/L (98-107); Glucose 90 mg/dl (70-99); Potassium 3.8 mmol/L (3.5-5.1); Sodium 138 mmol/L (135-145); Total Bilirubin 1.1 mg/dl (0.2-1.3); Total Protein 7.2 g/dl (6.3-8.2); eGFR > 60.00
[2024-05-05 18:59] VITALS: BP 139/71
[2024-05-05 19:00] VITALS: BMI 30.3
== END 2024-05-05 19:26 | disposition home or self-care (01) ==
LOC: EMR 16:31
PROVIDERS: Physician Assistant Medical; EMERGENCY PHYSICIAN Emergency Medicine; FAMILY PHYSICIAN Internal Medicine
DX: F32.A Depression, unspecified (principal); F41.9 Anxiety disorder, unspecified; R45.851 Suicidal ideations; F17.200 Nicotine dependence, unspecified, uncomplicated
CPT/HCPCS: 99283; 80053; 85025

== ENCOUNTER → 2024-05-13 12:43 | Outpatient (REF) | payer MEDICARE, SELFPAY | LOC: HWRAD 12:43 | PROVIDERS: ATTENDING PHYSICIAN Internal Medicine | DX: F17.210 Nicotine dependence, cigarettes, uncomplicated (principal) | CPT/HCPCS: 71271 ==

== ENCOUNTER 2024-06-27 16:53 | Emergency (ER) | payer OTHER, SELFPAY ==
[2024-06-27 16:55] VITALS: BP 122/71
[2024-06-27 17:00] VITALS: BP 122/71
[2024-06-27 17:17] LABS: % Basophils 0.2 % (0-2); % Immature Granulocytes 0.6 % (0-0.5); % Lymphocytes 42.3 % (20.5-51.1); % Monocytes 5.6 % (1.7-9.3); % Neutrophils 51.3 % (42.2-75.2); Absolute Lymphocytes 2.6 10^3/uL (1.2-3.4); Absolute Monocytes 0.4 10^3/uL (0.1-0.6); Absolute Neutrophils 3.2 10^3/uL (1.4-6.5); Hematocrit 36.3 % (37.0-47.0); Hemoglobin 12.3 g/dL (12.0-16.0); Mean Corp Hgb Conc. 33.9 g/dL (33.0-37.0); Mean Corpuscular Hgb 32.6 pg (27.0-31.0); Mean Corpuscular Volume 96.3 fL (81.0-99.0); Mean Platelet Volume 9.1 fL (7.4-10.4); Nucleated Red Blood Cells % 0 %; Platelet Count 197 10^3/uL (130-400); Red Blood Cell Count 3.77 10^6/uL (4.20-5.40); Red Cell Dist. Width 14.2 % (11.5-14.5); White Blood Cell Count 6.2 10^3/uL (4.8-10.8)
[2024-06-27 17:25] LABS: ALT (SGPT) 16 U/L (0-35); AST (SGOT) 21 U/L (14-36); Albumin 4.4 g/dl (3.5-5.0); Alkaline Phosphatase 91 U/L (38-126); Blood Urea Nitrogen 14 mg/dl (7-17); Calcium 9.9 mg/dl (8.4-10.2); Carbon Dioxide 24 mmol/L (22-30); Chloride 106 mmol/L (98-107); Glucose 97 mg/dl (70-99); Potassium 3.6 mmol/L (3.5-5.1); Sodium 139 mmol/L (135-145); Total Bilirubin 0.9 mg/dl (0.2-1.3); eGFR > 60.00
[2024-06-27] MEDS: ATIVAN 1 MG IV (17:28)
[2024-06-27 17:36] LABS: NT-proBNP 167 pg/ml; Troponin I < 0.012 ng/ml
--- NOTE | 2024-06-27 17:39 | ED.GENMED ---
History of Present Illness
General
Chief Complaint: Breathing Problem
Time Seen by Provider: 06/27/24 16:57
History of Present Illness
History of Present Illness:
63-year-old female with history of alcohol use, bipolar disorder, COPD and tobacco use presenting for chest pain and shortness of breath. Patient reports ongoing symptoms for the past week. She also notes prior to arrival started to have numbness
to her fingertips and her legs, however noted to be hyperventilating. Patient arrives by medics. Denies cough or fever. Denies abdominal pain or GI symptoms. Patient admits to feeling anxious. Denies alcohol or drug abuse. No additional
history or symptoms obtained at this time. Per medics, at time of pickup, patient was smoking a cigarette.
Past History
Past History
ED Past Medical History: Hypercholesterolemia, Psychiatric (Bipolar disorder, Anxiety, Depression) and Other (Hepatitis C, Colitis)
ED Past Surgical History: , Gynecological (Removal of an ovarian, Lumpectomy, ), Tonsilectomy and Other (lumpectomy)
Social History
Tobacco: Smoker
Alcohol: Chronic alcoholic
Drug: Marijuana
Personal:
Living: with family
Employment: Disabled
Family History
Family History: CAD
Phy Exam
Physical Exam
Physical Exam:
General: Anxious, hyperventilating
HEENT: protecting airway
Neck: appears supple
CV: Normal heart rate, regular rhythm
Resp: No accessory muscle use, no increased work of breathing, lungs clear to auscultation bilaterally
Abd: No distention
Extremities: No deformities, no swelling, no erythema
Neuro: alert, no focal neurologic deficit
: deferred
Rectal: deferred
Psych: Normal affect
Skin: Intact
Scores
Heart Failure Risk
Heart Failure Risk Score: Not Applicable
Course
Orders/Labs/Results
Orders:
Orders
06/27/24 17:00
Electrocardiogram (*1) Urgent
Reason for Study: Other
Other Reason for Exam: Respiratory Distress
Cardiac Monitoring- Treatment ONCE
EKG- Treatment ONCE
IV Insert/Care/Rem.- Treatment PRN
CR Chest - 2 Views Urgent
Comment:
Reason For Exam: respiratory distress
O2 Therapy [RESP] Urgent
Titrate/Wean O2 to maintain O2 sat greater than (%): 93
Special Instructions: TO MAINTAIN CONTINUOUS O2 SATS >/= 93%
Pulse Ox/cont/shift [RESP] Urgent
Quantity: 1
Special Instructions: continuous pulse ox
06/27/24 17:03
Alcohol Urgent
Complete Blood Count/With Diff Urgent
Comprehensive Metabolic Panel Urgent
NT-proBNP Urgent
Troponin I Urgent
06/27/24 17:15
Lorazepam [Ativan] 1 mg IV NOW STA
06/27/24 17:16
Add On- LAB Urgent
Tests Added?: alcohol level
06/27/24 17:47
Add On- LAB Urgent
Tests Added?: etoh
Abnormal Lab Results
06/27/24
17:03
RBC 3.77 L 10^6/uL
(4.20-5.40)
Hct 36.3 L %
(37.0-47.0)
MCH 32.6 H pg
(27.0-31.0)
Immature Gran % 0.6 H %
(0-0.5)
06/27/24 17:03
06/27/24 17:03
Vital Signs
Initial and Last Documented VS:
Initial Vital Signs
Temp Pulse Resp BP Pulse Ox
98.0 F 63 18 122/71 98
06/27/24 16:55 06/27/24 16:55 06/27/24 16:55 06/27/24 16:55 06/27/24 16:55
Last Documented Vital Signs
Temp Pulse Resp BP Pulse Ox
98.0 F 57 19 149/95 94
06/27/24 16:55 06/27/24 18:45 06/27/24 18:45 06/27/24 18:17 06/27/24 18:45
MDM/Problems Addressed
MDM/Problems Addressed:
63-year-old female with history of alcohol abuse, bipolar disorder, COPD and tobacco abuse presenting to the emergency department for chest pain, shortness of breath and anxiety. Vital signs are normal.
On exam, patient is in no acute distress, however is extremely anxious. Patient reports some numbness and tingling to her hands and feet, suspected panic attack. No neurovascular compromise to extremities. From a respiratory standpoint, lungs to
auscultation, no focal abnormal lung sounds. Without present concern for acute respiratory compromise or infection. EKG obtained, nonischemic. Without present concern for ACS. Ultimately suspect that all symptoms stem back to anxiety. Plan for
laboratory analysis and chest x-ray imaging and continued monitoring. Ativan administered for anxiety
19:00 -patient's labs unremarkable. Chest x-ray without acute cardiopulmonary disease. Patient resting comfortably, appears improved and feels improved. At this time feel stable for discharge with outpatient follow-up. Advised cessation of
tobacco. Return precautions discussed and patient verbalized understanding
*EKG
Interpreted by ED Provider?: Yes
EKG Intrepretation Date: 06/27/24
EKG Intrepretation Time: 17:57
Interpretation: normal
Comparison EKG: no changes (07/30/23)
Heart Rate: 75
Rate: normal
Rhythm: sinus
[place]: normal axis
Interval: normal interval
QRS Pattern: normal QRS
Ischemia: no ischemia
*Critical Care Note
Total Time (30-74mins, 75-104mins- exclusive of procedures): Not Applicable
ED Attending Note
-
Portions of this chart may have been created with voice recognition software.� Occasional wrong word or��sound alike� substitutions may have occurred due to the inherent limitations of voice recognition software.
Discharge Plan
Departure
Patient Disposition: Home (Routine Discharge)
Date of Disposition: 06/27/24
Time of Disposition: 19:01
Patient with high blood pressure during this ER visit?: No
Condition: Good
Discharge Problem:
Dyspnea, Panic attack
Instructions: Shortness of Breath (Dyspnea) (DC), Panic Disorder (DC)
Prescriptions:
No Action
propranolol 20 mg tablet
20 mg PO TID
escitalopram oxalate 10 mg tablet
10 mg PO DAILY
Theragen Tablet
1 tab PO QPM
aspirin 81 mg Tablet,Delayed Release (Dr/Ec)
81 mg PO QPM
alprazolam 0.25 mg Tablet
0.25 mg PO DAILY
Patient Comments:
07/30/2023, last filled on 06/07/2023 for 30 tablets per PDMP.
clonazepam 2 mg Tablet
2 mg PO TID
Patient Comments:
07/30/2023, last filled on 05/24/2023 for 270 tablets per PDMP.
ibuprofen 200 mg Tablet
600 mg PO TIDPRN PRN (Reason: mild pain)
cyclosporine [Restasis] 0.05 % Dropperette
1 drp BOTH EYES BID
Patient Comments:
07/30/2023, [facility] records from 12/28/2020; per [facility] records this med. was discontinued on 03/24/2021 but pt. states she is still taking it.
CoQ-10
1 cap PO QPM
cholecalciferol (vitamin D3)
1 tab PO QPM
cyanocobalamin (vitamin B-12)
1 tab PO QPM
acetaminophen [Tylenol Extra Strength] 500 mg tablet
1,000 mg PO Q6H PRN (Reason: mild pain)
Referrals:
Javier Jones MD [Family Provider] -
Activity Restrictions/Additional Instructions:
You were seen in the emergency department for shortness of breath and anxiety
You were found to have normal blood work and chest x-ray imaging. We suspect you had an anxiety attack prior to arrival.
Please follow-up closely with your primary care physician.
Return to the emergency department for any worsening of your symptoms, or any development of chest pain, difficulty breathing, abdominal pain with persistent vomiting and inability to tolerate food or liquid by mouth (concern for dehydration),
weakness, headache or confusion, fever greater than 100.4, or any additional symptoms that are concerning to you.
Thank you for choosing [facility].
Interventions
Interventions:
*Risk Screen - Suicide Last Done: 06/27/24 16:55
*General Assessment Last Done: 06/27/24 16:55
*Neglect/Abuse Screening Last Done: 06/27/24 16:55
*ED- Fall Risk Assessment Last Done: 06/27/24 16:55
*ED COVID-19 Vaccine History Last Done: 06/27/24 16:55
*Nursing Disposition Last Done: 06/27/24 19:35
ED- Cardiac Assessment Last Done: 06/27/24 17:36
ED- Pulmonary Assessment Last Done: 06/27/24 17:36
Discharge Date and Time
Discharge Date/Time: 06/27/24 19:35
Print Language: DANISH
[2024-06-27 18:17] VITALS: BP 149/95
[2024-06-27 18:29] LABS: Alcohol None Detected
== END 2024-06-27 19:35 | disposition home or self-care (01) ==
LOC: EMR 16:53
PROVIDERS: EMERGENCY PHYSICIAN Student in an Organized Health Care Education/Training Program; FAMILY PHYSICIAN Internal Medicine
DX: R06.00 Dyspnea, unspecified (principal); F41.0 Panic disorder [episodic paroxysmal anxiety]; F10.10 Alcohol abuse, uncomplicated; F31.9 Bipolar disorder, unspecified; J44.9 Chronic obstructive pulmonary disease, unspecified; F17.210 Nicotine dependence, cigarettes, uncomplicated; E78.00 Pure hypercholesterolemia, unspecified; Z82.49 Family history of ischemic heart disease and other diseases of the circulatory system
CPT/HCPCS: 99283; 96374; 71046; 80053; 82077; 83880; 84484; 85025; 93005

== ENCOUNTER → 2024-10-02 07:03 | Outpatient (REF) | payer OTHER, SELFPAY | LOC: HWWDC 07:03 | PROVIDERS: ATTENDING PHYSICIAN Internal Medicine | DX: N64.4 Mastodynia (principal); R20.2 Paresthesia of skin; G89.29 Other chronic pain; M54.50 Low back pain, unspecified | CPT/HCPCS: 72110; 77063; 77067 ==

== ENCOUNTER → 2024-10-23 10:52 | Outpatient (REF) | payer OTHER, SELFPAY | LOC: HWRAD 10:52 | PROVIDERS: ATTENDING PHYSICIAN Internal Medicine | DX: G89.29 Other chronic pain (principal); M25.561 Pain in right knee; M25.562 Pain in left knee; M54.2 Cervicalgia; R51.9 Headache, unspecified | CPT/HCPCS: 72050; 73564 ==

== ENCOUNTER → 2025-03-27 11:50 | Outpatient (REF) | payer OTHER, SELFPAY | LOC: RAD 11:50 | PROVIDERS: ATTENDING PHYSICIAN Nurse Practitioner Acute Care; FAMILY PHYSICIAN Internal Medicine | DX: R51.9 Headache, unspecified (principal) | CPT/HCPCS: 70470; Q9967 ==